=== PATIENT | male | born 1995 ===

== ENCOUNTER 2023-11-05 19:25 | Emergency (ER) | payer MEDICAID, SELFPAY ==
[2023-11-05 19:35] VITALS: BP 109/78; PULSE 87; RESP 20; TEMP 37; O2SAT 97; BMI 27.4
--- NOTE | 2023-11-05 19:39 | ED_ITS ---
HPI - General Adult General Chief complaint: General Medical Stated complaint: vomiting blood yesterday and this morning Time Seen by Provider: 11/05/23 21:59 Source: patient and family Mode of arrival: ambulatory Limitations: no limitations History of Present Illness ED Provider: Dr. Noriega HPI narrative: Patient states that after a night of heavy alcohol use and cocaine he vomited blood one time Onset (ago): day(s) Severity: mild Related Data Previous Rx's ?Medication ?Instructions ?Recorded pantoprazole 40 mg tablet,delayed 40 mg PO DAILY #20 tabs 11/05/23 release (Protonix) Allergies Allergy/AdvReac Type Severity Reaction Status Date / Time No Known Allergies Allergy Verified 11/05/23 19:37 Review of Systems 2 Review of Systems: Yes all other systems are reviewed and are negative Neurologic: Denies Sensory deficit (Neuro) [facility] Social History Social History Alcohol intake: current Use of substances other than those prescribed or required for medical reasons: Yes Substance Use Type: Crack/Cocaine Advance Directives: No Advance Directives Information Provided: Yes Do you have a plan to hurt others: No Plan Physical Exam ED Vital Signs: Vital Signs - 24 hr 11/05/23 19:35 11/05/23 23:31 11/05/23 23:32 Temperature 98.6 F 98.0 F 98.0 F Pulse Rate 87 67 67 Respiratory Rate 20 12 12 Blood Pressure 109/78 119/78 119/78 Pulse Oximetry 97 96 96 Oxygen Delivery Method Room Air Room Air Room Air BMI result Body Mass Index 27.4 Const General: healthy appearing Nutritional Appearance: average body habitus Orientation/consciousness: oriented to person and patient oriented x3 Limitations: no limitations HENMT Head: Yes normal to inspection Ears: external ears normal General nose exam: Normal external nose present Mouth: Normal oral and palatal mucosa present and oropharynx normal Throat: Yes posterior oropharynx normal Eyes General: appearance normal, both eyes and all related structures Neck Neck: Yes normal visual inspection Chest Chest palpation & inspection: normal inspection of the chest Resp Auscultation: clear to auscultation bilaterally Cardio Jugular venous distension: no JVD Rate: regular rate Rhythm: regular rhythm Heart sounds: S1 normal heart sound present and S2 normal heart sound present GI Inspection: Yes normal to inspection Palpation (GI): Soft to palpation, nontender and No hepatosplenomegaly present Auscultation: normal bowel sounds Other: rectal brown stool heme negative General: Yes no CVA tenderness Back/Spine/Pelvis Back: no CVA tenderness Skin General skin exam: no rashes or lesions noted Neuro General: oriented to person and patient oriented x3 Cranial nerves: Yes CN's II-XII intact bilaterally Motor exam (neuro): 5/5 motor strength present throughout Sensory Exam: No Sensory deficit (Neuro) Extrem General: Yes normal to inspection Psych Appearance: grossly normal Course Course Course Narrative: This is a Rapid Medical Examination (RME) performed by Rochelle Beal PA-C in triage. Full HPI, ROS, assessment and treatment plan per primary provider in the Main ED. 28 yo male hx of etoh abuse here for eval of bloody emesis. reports heavy drinking yesterday and snorting cocaine, had one episode of vomiting with dark red chunks in the vomit. admits to lower abdominal pain and loose stools. no hematuria. no melena. Plan: labs, UA, will defer imaging to primary provider Reevaluation(s) Reevaluation #1: At this time patient refusing NGT lavage. He most likely had a Yasmin Sanders tear as he has a normal HCT, brown stool heme negative Time: 23:09 Medical Decision Making Differential Diagnosis Differential Diagnoses: The differential diagnosis associated with the presentation includes (gastritis, yasmin hesham tear, PUD) Admission/Observation Consideration of admission/observation: Escalation of care including admission/observation considered (upon arrival admission was considered) Lab Data 11/05/23 21:01 11/05/23 21:01 Labs: Lab Results 11/05/23 Range/Units 21:01 WBC 6.1 (4.8-10.8) X10*3/uL RBC 4.54 L (4.60-5.80) X10*6/uL Hgb 14.1 (14.0-18.0) g/dl Hct 40.3 L (42.0-52.0) % MCV 88.8 (80.0-98.0) fL MCH 31.1 (27.0-33.0) pg MCHC 35.0 (31.0-36.0) g/dl RDW 12.7 (11.0-16.0) % Plt Count 289 (160-400) X10*3/uL MPV 9.1 L (9.4-12.4) fL Immature Gran % (Auto) 0.5 H (0.0-0.4) % Neut % (Auto) 42.3 L (45-73) % Lymph % (Auto) 39.1 (20-40) % Highland % (Auto) 12.3 H (2-11) % Eos % (Auto) 5.1 H (0-4) % Baso % (Auto) 0.7 (0-2) % Lymph # (Auto) 2.4 (1.2-4.9) X10*3/uL Highland # (Auto) 0.8 (0.1-1.2) X10*3/uL Eos # (Auto) 0.3 (0.0-0.4) X10*3/uL Baso # (Auto) 0.0 (0.0-0.2) X10*3/uL Abs Immat Gran (auto) 0.03 (0.00-0.03) X10*3/uL Absolute Neuts (auto) 2.6 (2.0-8.3) x10*3/uL Absolute Nucleated RBC 0.000 (0.0-0.012) X10*3/uL Nucleated RBC % (auto) 0.0 (0.0-0.2) /100WBC Sodium 143 (135-145) mmol/L Potassium 3.8 (3.3-5.1) mmol/L Chloride 106 (96-108) mmol/L Carbon Dioxide 30 H (22-29) mmol/L Anion Gap 11 L (12-20) BUN 11 (9-16) mg/dL Creatinine 0.90 (0.5-1.4) mg/dL Estim Creat Clear Calc 101.8 Estimated GFR > 60 Random Glucose 116 H (60-115) mg/dL Calcium 9.0 (8.4-10.2) mg/dL Magnesium 2.1 (1.6-2.6) mg/dL Total Bilirubin 0.3 (0.0-1.0) mg/dL AST 14 (5-37) U/L ALT 15 (0-40) U/L Alkaline Phosphatase 80 (39-117) U/L Total Protein 7.0 (6.5-8.0) g/dL Albumin 4.1 (3.5-5.0) g/dL Lipase 26 (8-78) U/L Ethyl Alcohol < 10 mg/dL Independent Historian Clinical information obtained from an independent historian. History obtained from or confirmed by: Spouse Tests considered The following testing was considered but not selected: CT of abdomen was considered but patient with stable vital, normal HCT heme negative on rectal exam Chronic Conditions Patient?s care impacted by: Other (alcohol and drug use) Social Determinants Patient?s care significantly limited by Social Determinants of Health including: Alcoholism and drug addiction in family Discharge Plan Discharge Clinical Impression: Gastritis, Yasmin-Sanders tear Patient Disposition: Home, Self-Care Instructions: Gastritis (ED), Yasmin-Sanders Syndrome (ED) Prescriptions: New pantoprazole [Protonix] 40 mg tablet,delayed release (DR/EC) 40 mg PO DAILY Qty: 20 0RF Referrals: Physician,Unknown J [Primary Care Provider] - 5 days Interventions: ED Discharge Assessment Last Done: 11/05/23 23:32 Discharge Date/Time: 11/05/23 23:35 Print Language: Latvian
[2023-11-05 21:05] LABS: MANUAL DIFF FLAG NO
[2023-11-05 21:23] LABS: Alanine Aminotransferase 15 U/L (0-40); Albumin Level 4.1 g/dL (3.5-5.0); Alkaline Phosphatase 80 U/L (39-117); Anion Gap 11 (12-20); Aspartate Amino Transferase 14 U/L (5-37); Bilirubin Total 0.3 mg/dL (0.0-1.0); Blood Urea Nitrogen 11 mg/dL (9-16); Carbon Dioxide 30 mmol/L (22-29); Chloride 106 mmol/L (96-108); Creatinine Clr Calc Pharmacy 101.8; Estimated Glomerular Filt Rate > 60; Ethanol < 10 mg/dL; Glucose Random 116 mg/dL (60-115); Lipase 26 U/L (8-78); Magnesium 2.1 mg/dL (1.6-2.6); Potassium 3.8 mmol/L (3.3-5.1); Sodium 143 mmol/L (135-145)
[2023-11-05 21:29] LABS: Basophils Percent Auto 0.7 % (0-2); Eosinophils Absolute Auto 0.3 X10*3/uL (0.0-0.4); Eosinophils Percent Auto 5.1 % (0-4); Hematocrit 40.3 % (42.0-52.0); Hemoglobin 14.1 g/dl (14.0-18.0); Imm Gran Abs Auto 0.03 X10*3/uL (0.00-0.03); Imm Gran Pct Auto 0.5 % (0.0-0.4); Lymphocytes Absolute Auto 2.4 X10*3/uL (1.2-4.9); Lymphocytes Percent Auto 39.1 % (20-40); Mean Corpuscular Hemoglobin 31.1 pg (27.0-33.0); Mean Corpuscular Volume 88.8 fL (80.0-98.0); Mean Platelet Volume 9.1 fL (9.4-12.4); Monocytes Absolute Auto 0.8 X10*3/uL (0.1-1.2); Monocytes Percent Auto 12.3 % (2-11); Neutrophils Absolute Auto 2.6 x10*3/uL (2.0-8.3); Neutrophils Percent Auto 42.3 % (45-73); Platelet Count 289 X10*3/uL (160-400); Red Blood Count 4.54 X10*6/uL (4.60-5.80); Red Cell Distribution Width 12.7 % (11.0-16.0); White Blood Count 6.1 X10*3/uL (4.8-10.8)
--- OUTSIDE RECORDS SUMMARY | 2023-11-05 23:20 | XMS_ITS | Continuity of Care Document ---
Author Organization [facility] ter Address [address] [place] [address]- Care Team Providers Care Diagnostic Radiologic Technologist Name Role Phone Not on Staff, PCP Primary Care Physician Unavail able [place] [facility] [place] - 09/28/[address] [address]- Encounter Diagnosis Cocaine abuse(Final) - 09/28/21 Discharge Disposition: A-D/C Home Attending Physician: Matteo Ratliff DO Admitting Physician: Matteo Ratliff DO Referring Physician: Not on Staff, Referring MD Allergies, Adverse Reactions, Alerts No Known Allergies Medications ibuprofen 400 mg oral tablet 400 mg, 1, tablet, By Mouth, 3 times a day, PRN, with food or milk, # 10 tablet, Refills 0, Tot. Refills 0, Maintenance, for fever, 09/24/19 16:48:00 EDT, Route to Pharmacy Electronically, [id number], 158, cm, 09/24/19 15:42:00 EDT, Height, 68... Start Date: 09/24/19 Status: Ordered naproxen sodium 550 mg oral tablet 1 tablet = 550 mg, By Mouth, 2 times a day, PRN for arthritis, # 20 tablet, 0 Refills, Maintenance,04/18/19 13:01:00 EST, Tablet, [id number], 158, cm, 04/18/19 12:33:00 EST, Height, 66.4, kg, 04/18/19 12:33:00 EST, Dry Weight Start Date: 04/18/19 Status: Ordered Problem List Condition Effective Dates Status Health Status Inform ant Hallucinations(Confirmed) Active Suicidal behavior(Confirmed) Active Results Radiology Reports * Exam Date Time Procedure Performing Provider Status 09/28/21 10:26 AM Chest Portable Rica Wallis; Issa (Verified) Notes: (Chest Portable) Reason For Exam: CHF RESULT: Chest Portable Chest Portable Hx of Present Illness: AMS; Reason: CHF; Clinical Question(s): CHF COMPARISON: 08/19/2021. FINDINGS: LINES AND TUBES: None. LUNGS AND PLEURA: Clear lungs. Normal pulmonary vascularity. No pleural effusion. No pneumothorax. HEART, MEDIASTINUM AND TERRY: Heart is normal in size. Normal upper mediastinal and hilar contour. BONES AND SOFT TISSUES: No acute abnormality. IMPRESSION: No acute abnormality. WSN: [id number] Ordering Physician: Matteo Ratliff Dictated By: Robert Salas MD Dictated Date/Time: 09/28/21 10:30 a Reviewed By: Robert Salas MD Signed By: Robert Salas MD Signed Date/Time: 09/28/21 10:30 am Transcribed By: FELIBERTO Transcribed Date/Time: 09/28/21 10:29 am Vital Signs Most recent to oldest [Reference Range]: 1 2 3 Oxygen Saturation [94-100 %] 100 % (09/28/21 12:36 PM) 100 % (09/28/21 11:25 AM) 100 % (09/28/21 10:49 AM) Pulse Rate [55-90 bpm] 65 bpm (09/28/21 12:36 PM) 95 bpm *H* (09/28/21 11:25 AM) 90 bpm (09/28/21 10:49 AM) Blood Pressure [90-138/55-84 mm Hg] 136/88mm Hg (09/28/21 12:36 PM) 134/86mm Hg (09/28/21 11:25 AM) 139/82mm Hg *H* (09/28/21 10:49 AM) Respiratory Rate [16-30 br/min] 18 br/min (09/28/21 12:36 PM) 18 br/min (09/28/21 11:25 AM) 19 br/min (09/28/21 10:49 AM) Temperature [96.8-100.4 DegF] 98.8 DegF (09/28/21 10:49 AM) 98.6 DegF (09/28/21 9:45 AM) 98.6 DegF (09/28/21 9:07 AM) Mode of Delivery (Oxygen) Room air (09/28/21 12:36 PM) Room air (09/28/21 11:25 AM) Room air (09/28/21 10:49 AM) Blood pressure sites Arm, left (09/28/21 12:36 PM) Arm, left (09/28/21 11:25 AM) Arm, left (09/28/21 10:49 AM) Temperature Route Oral (09/28/21 9:45 AM) Oral (09/28/21 9:07 AM) Social History Social History Type Response Smoking Status Current every day glen gordon entered on: 06/28/14 Sex
--- OUTSIDE RECORDS SUMMARY | 2023-11-05 23:20 | XMS_ITS | Continuity of Care Document ---
Author Organization [facility] ter Address [address] [place] [id number]- Care Team Providers Care Transaction Coordinator Name Role Phone Matteo hCurch Primary Care Physician [phone] Encounter [facility] [place] Date(s): 06/24/23 - 06/24/[address] [address]- Encounter Diagnosis Depression(Final) - 06/24/23 Discharge Disposition: A-D/C Home Attending Physician: Leopoldo Emmanuel MD Admitting Physician: Leopoldo Emmanuel MD Referring Physician: Not on Staff, Referring MD Allergies, Adverse Reactions, Alerts No Known Medication Allergies Substance Reaction Severity Status Bee Stings Active Immunizations Given and Recorded Vaccine Date Status Refusal Reason Hepatitis A Adult Vaccine 05/17/21 Recorded Hepatitis A Adult Vaccine 04/22/16 Recorded tetanus/diphtheria/pertussis, acel(Tdap) 05/17/21 Recorded SARS-CoV-2 (COVID-19) mRNA-1273 vaccine 11/30/20 R ecorded SARS-CoV-2 (COVID-19) mRNA-1273 vaccine 06/25/20 R ecorded influenza virus vaccine, inactivated 04/15/19 Mio rded pneumococcal 23-valent vaccine 04/22/16 Recorded Measles/Mumps/Rubella Virus Vaccine 04/22/16 Recor ded hepatitis B adult vaccine 04/22/16 Recorded Medications clotrimazole 1% topical cream See Instructions, Topically 2 times a day, # 30 Gm, 0 Refills, Maintenance, 10/13/21 11:28:00 EDT, Cream, [id number], Partial fill upon patient request if the prescription is for a schedule II opioid drug., Topically 2 times a day, 15... Start Date: 10/13/21 Status: Ordered escitalopram 10 mg oral tablet 1 tablet = 10 mg, By Mouth, Daily, # 30 tablet, 0 Refills, Maintenance, 10/13/21 11:30:00 EDT, Tablet, [id number], Partial fill upon patient request if the prescription is for a schedule II opioid drug., 157, cm, 10/13/21 10:46:00 EDT... Start Date: 10/13/21 Status: Ordered nicotine 14 mg/24 hr transdermal film, extended release 1 patch, Topically, Daily, # 30 patch, 0 Refills, Maintenance, 10/13/21 11:30:00 EDT, Patch, [facility] #[id number], Partial fill upon patient request if the prescription is for a schedule II opioid drug., 1 patch Topically Daily, 157, cm, ... Start Date: 10/13/21 Status: Ordered Nicotine 2 mg gum = 2 mg, Chew, Every hour, PRN Other, Nicotine Cravings, # 160 each, 0 Refills, Maintenance, 10/13/21 11:30:00 EDT, Gum, [facility] #[id number], Partial fill upon patient request if the prescription is for a schedule II opioid drug., 157, cm, 09/20... Start Date: 10/13/21 Status: Ordered traZODone 50 mg oral tablet 50 mg, 1, tablet, By Mouth, Daily at bedtime, PRN, May repeat x1 if first dose ineffective, # 30 tablet, Refills 0, Tot. Refills 0, Maintenance, Insomnia, 10/13/21 11:30:00 EDT, Route to Pharmacy Electronically, [facility] #[id number], Partial fi... Start Date: 10/13/21 Status: Ordered Problem List Condition Confirmation Course Effective Dates Status Health St atus Informant Hallucinations Confirmed Active Suicidal behavior Confirmed Active Results Radiology Reports * Exam Date Time Procedure Performing Provider Status 06/24/23 8:16 AM Chest Portable Kayden Ludwig; Auth ( Verified) Notes: (Chest Portable) Reason For Exam: Shortness of Breath RESULT: Chest Portable Chest Portable Hx of Present Illness: SI, with ETOH and cocaine use; Reason: Shortness of Breath; Clinical Question(s): CHF COMPARISON: None. FINDINGS: LINES AND TUBES: None. LUNGS AND PLEURA: Clear lungs. Normal pulmonary vascularity. No pleural effusion. No pneumothorax. HEART, MEDIASTINUM AND TERRY: Heart is normal in size. Normal mediastinal and hilar contour. BONES AND SOFT TISSUES: No acute abnormality. IMPRESSION: No acute abnormality. WSN: [id number] Ordering Physician: Flores Robles Dictated By: Juan Pablo Carlin MD Dictated Date/Time: 06/24/23 8:21 am Reviewed By: Juan Pablo Carlin MD Signed By: Juan Pablo Carlin MD Signed Date/Time: 06/24/23 8:21 am Transcribed By: FELIBERTO Transcribed Date/Time: 06/24/23 8:21 am Vital Signs Most recent to oldest [Reference Range]: 1 2 3 Height 157 cm (06/24/23 8:00 AM) Weight 63.6 kg (06/24/23 8:00 AM) Oxygen Saturation [94-100 %] 99 % (06/24/23 1:24 PM) 98 % (06/24/23 10:04 AM) 99 % (06/24/23 9:09 AM) Pulse Rate [55-90 bpm] 76 bpm (06/24/23 1:24 PM) 72 bpm (06/24/23 10:04 AM) 74 bpm (06/24/23 9:09 AM) Blood Pressure [90-138/55-84 mm Hg] 138/78mm Hg (06/24/23 1:24 PM) 134/82mm Hg (06/24/23 10:04 AM) 107/78mm Hg (06/24/23 9:09 AM) Respiratory Rate [16-30 br/min] 16 br/min (06/24/23 1:24 PM) 18 br/min (06/24/23 10:04 AM) 16 br/min (06/24/23 9:09 AM) Temperature [96.8-100.4 DegF] 98.1 DegF (06/24/23 8:00 AM) Mode of Delivery (Oxygen) Room air (06/24/23 1:24 PM) Room air (06/24/23 10:04 AM) Room air (06/24/23 9:09 AM) Blood pressure sites Arm, left (06/24/23 10:04 AM) Arm, left (06/24/23 9:09 AM) Arm, left (06/24/23 8:00 AM) Temperature Route Oral (06/24/23 8:00 AM) Dry Weight 63.6 kg (06/24/23 8:00 AM) Weight Obtained Via Patient/family state d (06/24/23 8:00 AM) Dry Weight Obtained Via Patient/family s tated (06/24/23 8:00 AM) Social History Social History Type Response Smoking Status Use: 1 PPD; Interest ed in cessation: Yes; Patient wants NRT during admission Yes;Never entered on: 10/11/21 Sex EKG study * Event Display: ECG 12-Lead Authored Date: Please click on pdf link to open report * Event Display: ECG 12-Lead Authored Date: Ventricular Rate: 80 BPM Atrial Rate: 80 BPM P-R Interval: 160 ms QRS Duration: 94 ms Q-T Interval: 376 ms QTC Calculation(Bazett): 433 ms R Bryan: 121 degrees T Bryan: 114 degrees Normal sinus rhythm Right axis deviation Nonspecific T wave abnormality Abnormal ECG When compared with ECG of 19-FEB-2023 16:23, Nonspecific T wave abnormality now evident in Lateral leads Confirmed by SERA FLORES MD ([id number]) on 06/24/2023 8:18:15 PM [place]: SERA FLORES MD Patient Care team information Care Team Personnel Name: Matteo Church Position: [facility] Outreach Member Role: PCP Address: Address: [address] [place] [id number] Name: Rochelle Anderson RN Position: [facility] RN Member Role: Primary Care Nurse Name: Dee Brown RN Position: [facility] RN Member Role: Primary Care Nurse Name: Sherie Díaz RN Position: [facility] RN Member Role: Primary Care Nurse Name: Brent Wayne MD Position: [facility] Physician - Behavioral Health Member Role: Lifetime Consulting Physician Address: Address: [address] [place] [id number] Care Team Related Persons Name: RENEE ARCOS Address: home [address] [place] [address] Name: RENEE ARCOS Address: home [address] [place] [address] Name: ERNESTOKHALIDA Address: home [address] [place] [address] Name: COLBY LOPEZ Name: KAPIL BALLARD Address: home [address] [place] [address] Name: LORI DE JESUS Address: home [address] [place] [address]
--- OUTSIDE RECORDS SUMMARY | 2023-11-05 23:20 | XMS_ITS | Continuity of Care Document ---
Author Organization [facility] ter Address [address] [place] [id number]- Care Team Providers Care Breaker Up Name Role Phone Sumit LOPEZ, Trinidad Grace Primary Care Physician [place] [facility] [place] 04/29/22 - 04/29/[address] [address]- Encounter Diagnosis Cocaine use disorder(Final) - 04/29/22 Altered mental state(Final) - 04/29/22 Fall(Final) - 04/29/22 Discharge Disposition: A-D/C Home Attending Physician: Chapito Peña MD Admitting Physician: Chapito Peña MD Referring Physician: Not on Staff, Referring [...] 0 Refills, Maintenance, 10/13/21 11:28:00 EDT, Cream, [facility] #[id number], Partial fill upon patient request if the prescription is for a schedule II opioid drug., Topically 2 times a day, 15... Start Date: 10/13/21 Status: Ordered escitalopram 10 mg oral tablet 1 tablet = 10 mg, By Mouth, Daily, # 30 tablet, 0 Refills, Maintenance, 10/13/21 11:30:00 EDT, Tablet, [facility][id number], Partial fill upon patient request if the prescription is for a schedule II opioid drug., 157, cm, 10/13/21 10:46:00 EDT... Start Date: 10/13/21 Status: Ordered nicotine 14 mg/24 hr transdermal film, extended release 1 patch, Topically, Daily, # 30 patch, 0 Refills, Maintenance, 10/13/21 11:30:00 EDT, Patch, [facility] #[id number], Partial fill upon patient request if the prescription is for a schedule II opioid drug., 1 patch Topically Daily, 157, cm, ... Start Date: 10/13/21 Status: Ordered Nicotine 2 mg gum = 2 mg, Chew, Every hour, PRN Other, Nicotine Cravings, # 160 each, 0 Refills, Maintenance, 10/13/21 11:30:00 EDT, Gum, [facility] #[id number], Partial fill upon patient request if the prescription is for a schedule II opioid drug., 157, cm, 09/20... Start Date: 10/13/21 Status: Ordered traZODone 50 mg oral tablet 50 mg, 1, tablet, By Mouth, Daily at bedtime, PRN, May repeat x1 if first dose ineffective, # 30 tablet, Refills 0, Tot. Refills 0, Maintenance, Insomnia, 10/13/21 11:30:00 EDT, Route to Pharmacy Electronically, [facility] #[id number], Partial fi... Start Date: 10/13/21 Status: Ordered Problem List Condition Confirmation Course Effective Dates Status [facility] atus Informant Hallucinations Confirmed Active Suicidal behavior Confirmed Active Results Radiology Reports * Exam Date Time Procedure Performing Provider Status 04/29/22 4:[address] Head/Brain W/O Contrast Avery Valdez Z; Auth (Verified) Notes: (CT Head/Brain W/O Contrast) Reason For Exam: Seizure Disorder RESULT: CT Head/Brain W/O Contrast CT Head/Brain W/O Contrast INDICATION: Hx of Present Illness: Seizure like activity; Reason: Seizure Disorder; Clinical Question(s): Hematoma; Order Comment: TECHNIQUE: Noncontrast head CT using axial technique and reconstructed in axial and coronal planes.Iterative reconstruction techniques are used to optimize dose and image quality. CTDIvol Head: 48.00 mGy, DLP Head: 772 mGy*cm. COMPARISON: None. FINDINGS: Freight Conductor view findings, lines and tubes: None. BRAIN AND EXTRA-AXIAL SPACES: No parenchymal hemorrhage, midline shift, or mass effect. Bolton-white matter differentiation is wellpreserved. No acute infarct. Ventricles, sulci, and basilar cisterns are normal. There are low-lying cerebellar tonsils. No white matter lesions. No subarachnoid hemorrhage. No subdural or epidural collection. CALVARIUM, SKULL BASE, AND SOFT TISSUES: No fractures or suspicious bony lesions. The paranasal sinuses and mastoid air cells are clear. The anterior portion of the nasal septum is absent. Visualized orbits and globes are intact. The extracranial soft tissues are unremarkable. IMPRESSION: No acute intracranial pathology. Low-lying cerebellar tonsils. WSN: [id number] Ordering Physician: Simona Bettencourt Dictated By: Rambo Bartholomew MD Dictated Date/Time: 04/29/22 4:40 pm Reviewed By: Rambo Bartholomew MD Signed By: Rambo Bartholomew MD Signed Date/Time: 04/29/22 4:40 pm Transcribed By: FELIBERTO Transcribed Date/Time: 04/29/22 4:36 pm Vital Signs Most recent to oldest [Reference Range]: 1 2 3 Oxygen Saturation [94-100 %] 98 % (04/29/22 8:09 PM) 99 % (04/29/22 6:54 PM) 98 % (04/29/22 3:32 PM) Pulse Rate [55-90 bpm] 102 bpm *H* (04/29/22 8:09 PM) 92 bpm *H* (04/29/22 6:54 PM) 105 bpm *H* (04/29/22 3:32 PM) Blood Pressure [90-138/55-84 mm Hg] 126/81mm Hg (04/29/22 8:09 PM) 146/78mm Hg *H* (04/29/22 6:54 PM) 151/87mm Hg *H* (04/29/22 3:32 PM) Respiratory Rate [16-30 br/min] 22 br/min (04/29/22 8:09 PM) 18 br/min (04/29/22 6:54 PM) 18 br/min (04/29/22 3:32 PM) Temperature [96.8-100.4 DegF] 99.0 DegF (04/29/22 3:32 PM) Mode of Delivery (Oxygen) Room air (04/29/22 8:09 PM) room air (04/29/22 6:54 PM) Room air (04/29/22 3:32 PM) Blood pressure sites Arm, right (04/29/22 6:54 PM) Arm, left (04/29/22 3:32 PM) Temperature Route Oral (04/29/22 3:32 PM) Social History Social History Type Response Smoking Status Use: 1 PPD; Interest ed in cessation: Yes; Patient wants NRT during admission Yes;Never entered on: 10/11/21 Sex Note * Simona Bettencourt MD: PERFORM, SIGN, VERIFY Event Display: Patient Education Handout Authored Date: [id number] * Simona Bettencourt MD: PERFORM Event Display: Patient Education Leaflets Authored Date: [id number] Altered Level of Consciousness (LOC) ?? [id number] Nivel de conciencia alterado El nivel de consciencia (LOC, por sepulveda sigla en ingl??s) es la medida de la capacidad de renaldo persona para interactuar con otras y reaccionar a lo que ocurre a sepulveda alrededor. Es posible que renaldo persona con un nivel de conciencia alterado no responda al tacto o a las voces. Puede parecer ausente o con la mente en crowley. Es posible que tenga dificultades para hacer contacto visual. Es posible que est?? d??natalie y no pueda moverse por per??odos largos. O que muestre poco inter??s en moverse. Tambi??n puede estar confundido. La alteraci??n del nivel de consciencia (LOC) puede tener muchas causas. Por ejemplo, bajo nivel deaz??car en la brenda, infecciones, medicamentos, lesiones en la angelo, convulsiones, ataque cerebral o embriaguez. La alteraci??n del nivel de consciencia es renaldo situaci??n de emergencia. El proveedor de atenci??n m??dica le pedir?? otras pruebas para ayudar a determinar la causa. Estas pueden incluir an??lisis de brenda y estudios con im??genes. El tratamiento estabiliza la respiraci??n y la frecuencia card??laura. Le administrar??n medicamentos a ramu??s de renadlo sonda intravenosa colocada en el brazo o la mano. Renaldo vez que se haya determinado la causa, le mago??n un tratamiento espec??fico. En la mayor??a de los casos, la persona ser?? hospitalizada para que le realicen las pruebas de diagn??stico y permanezca en observaci??n. Algunas afecciones poco frecuentes, gabby el s??ndrome de enclaustramiento y el mutismo acin??keiry, pueden confundirse con un coma.??Philippe la persona est?? completamente despierta. Cuidados en el hogar Cuando a sepulveda ser querido le den el eren del hospital, le mago??n pautas para cuidarlo. En general: ??? Siga las instrucciones del proveedor para administrarle a sepulveda hijo cualquier medicamento que le hayan recetado. ??? Permanezca con la persona afectada o pida a un adulto responsable que la cuide. Observe a la persona con cuidado para detectar la reaparici??n de s??ntomas o cambios en el comportamiento. ??? Si la persona tiene diabetes, aseg??rese de darle los medicamentos aprobados de forma puntual y siguiendo las indicaciones. ?? Visita de seguimiento Stephon el seguimiento con el proveedor de atenci??n m??dica o con nuestro personal jey gabby se lo indiquen. ?? Cu??ndo buscar atenci??n m??dica Llame de inmediato a sepulveda proveedor de atenci??n m??dica si aparecen s??ntomas nuevos. ?? Cu??ndo llamar al?? 911 Llame al?? 911 o busque atenci??n m??dica de inmediato si reaparecen los s??ntomas de alteraci??n del nivel de consciencia. ?? Last Reviewed Date: 2021 ?? [id number] [employer]. Todos los derechos reservados. Esta informaci??n no pretende sustituir la atenci??n m??dica profesional. S??lo sepulveda m??dico puede diagnosticar y tratar un problema de rob. ?? CT Head WO contrast * BHSPowerscribe , CIS S: TRANSCRIBE [place] [facility], Rambo H: VERIFY Event Display: Result: Authored Date: [id number] CT Head/Brain W/O Contrast INDICATION: Hx of Present Illness: Seizure like activity; Reason: Seizure Disorder; Clinical Question(s): Hematoma; Order Comment: TECHNIQUE: Noncontrast head CT using axial technique and reconstructed in axial and coronal planes.Iterative reconstruction techniques are used to optimize dose and image quality. CTDIvol Head: 48.00 mGy, DLP Head: 772 mGy*cm. COMPARISON: None. FINDINGS: Freight Conductor view findings, lines and tubes: None. BRAIN AND EXTRA-AXIAL SPACES: No parenchymal hemorrhage, midline shift, or mass effect. Bolton-white matter differentiation is wellpreserved. No acute infarct. Ventricles, sulci, and basilar cisterns are normal. There are low-lying cerebellar tonsils. No white matter lesions. No subarachnoid hemorrhage. No subdural or epidural collection. CALVARIUM, SKULL BASE, AND SOFT TISSUES: No fractures or suspicious bony lesions. The paranasal sinuses and mastoid air cells are clear. The anterior portion of the nasal septum is absent. Visualized orbits and globes are intact. The extracranial soft tissues are unremarkable. IMPRESSION: No acute intracranial pathology. Low-lying cerebellar tonsils. WSN: [id number] Ordering Physician: Simona Bettencourt Dictated By: Rambo Bartholomew MD Dictated Date/Time: 04/29/22 4:40 pm Reviewed By: Rambo Bartholomew MD Signed By: Rambo Bartholomew MD Signed Date/Time: 04/29/22 4:40 pm Transcribed By: FELIBERTO Transcribed Date/Time: 04/29/22 4:36 pm Patient Care team information Care Team Personnel Name: Trinidad Arana NP Position: [facility] Outreach Member Role: PCP Address: Address: [address] [place], [place] [address] Name: Rochelle Anderson RN Position: [facility] RN Member Role: Primary Care Nurse Name: Dee Brown RN Position: [facility] RN Member Role: Primary Care Nurse Name: Sherie Díaz RN Position: [facility] RN Member Role: Primary Care Nurse Name: Brent Wayne MD Position: [facility] Psychiatry MD Member Role: Lifetime Consulting Physician Address: Address: [address] [place] [id number] Name: Simona Bettencourt MD Position: [facility] Resident Member Role: ED Resident Address: Address: [address] [place] [address]- Name: Sol Allison Position: [facility] ED TA [facility] Member Role: Manager Interface Name: Chapito Peña MD Position: [facility] Resident Member Role: Admitting Physician Address: Address: [address] [place] [id number] Name: Beckie Kirby RN Position: [facility] ED RN W/OE and Tasks Member Role: Patient Care Provider Care Team Related Persons Name: JOSSELYN RENEE Address: [address] [address] Name: RENEE ARCOS Address: home [address] [place] [address] Name: KAPIL BALLARD Address: home [address] [place] [address] Name: LORI DE JESUS Address: home [address] [place] [address]
--- OUTSIDE RECORDS SUMMARY | 2023-11-05 23:20 | XMS_ITS | Continuity of Care Document ---
Author Organization [facility] ter Address [address] [place] [address]- Care Team Providers Care Warehouse Director Name Role Phone Not on Staff, PCP Primary Care Physician Unavail able [place] [facility] [place] 08/06/[address] [address]- Discharge Disposition: A-D/C Walkout Attending Physician: Dave Bradley MD Admitting Physician: Dave Bradley MD Referring Physician: Not on Staff, Referring MD Allergies, Adverse Reactions, Alerts No Known Medication Allergies Substance Reaction Severity Status NKA Active Medications ibuprofen 400 mg oral tablet 400 mg, 1, tablet, By Mouth, 3 times a day, PRN, with food or milk, # 10 tablet, Refills 0, Tot. Refills 0, Maintenance, for fever, 09/24/19 16:48:00 EDT, Route to Pharmacy Electronically, [facility]acy #[id number], 158, cm, 09/24/19 15:42:00 EDT, Height, [...] Inform ant Hallucinations(Confirmed) Active Suicidal behavior(Confirmed) Active Vital Signs Most recent to oldest [Reference Range]: 1 2 Height 158 cm (08/06/20 8:40 AM) Weight 71.5 kg (08/06/20 8:40 AM) Oxygen Saturation [94-100 %] 100 % (08/06/20 8:40 AM) 99 % (08/06/20 8:20 AM) Pulse Rate [55-90 bpm] 107 bpm *H* (08/06/20 8:40 AM) 113 bpm *H* (08/06/20 8:20 AM) Body Mass Index [18.5-24.99] 28.64 *H* (08/06/20 8:40 AM) Blood Pressure [90-138/55-84 mm Hg] 149/ 83mm Hg *H* (08/06/20 8:40 AM) Respiratory Rate [16-30 br/min] 26 br/mi n (08/06/20 8:40 AM) Temperature [96.8-100.4 DegF] 98.4 DegF (08/06/20 8:40 AM) Mode of Delivery (Oxygen) Room air (08/06/20 8:40 AM) Room air (08/06/20 8:20 AM) Blood pressure sites Arm, left (08/06/20 8:40 AM) Temperature Route Oral (08/06/20 8:40 AM) Weight Obtained Via Standing scale (08/06/20 8:40 AM) Social History Social History Type Response Smoking Status Current every day glen gordon entered on: 06/28/14 Sex
--- OUTSIDE RECORDS SUMMARY | 2023-11-05 23:20 | XMS_ITS | Continuity of Care Document ---
Author Organization [facility] ter Address [address] [place] [address]- Care Team Providers Care Encyclopedia Research Worker Name Role Phone Not on Staff, PCP Primary Care Physician Unavail able Encounter [facility] [place] Date(s): 08/19/21 - 08/19/[address] [address]- Encounter Diagnosis Chest pain(Final) - 08/19/21 Cocaine abuse(Final) - 08/19/21 Alcohol abuse(Final) - 08/19/21 Discharge Disposition: A-D/C Home Attending Physician: Francy Hall MD Admitting Physician: Francy Hall MD Referring Physician: Not on Staff, Referring MD Allergies, Adverse Reactions, Alerts No Known Allergies Medications ibuprofen 400 mg oral tablet 400 mg, 1, tablet, By Mouth, 3 times a day, PRN, with food or milk, # 10 tablet, Refills 0, Tot. Refills 0, Maintenance, for fever, 09/24/19 16:48:00 EDT, Route to Pharmacy Electronically, [facility] #[id number], 158, cm, 09/24/19 15:42:00 EDT, Height, 68... Start Date: 09/24/19 Status: Ordered naproxen sodium 550 mg oral tablet 1 tablet = 550 mg, By Mouth, 2 times a day, PRN for arthritis, # 20 tablet, 0 Refills, Maintenance,04/18/19 13:01:00 EST, Tablet, [facility]acy #1111, 158, cm, 04/18/19 12:33:00 EST, Height, 66.4, kg, 04/18/19 12:33:00 EST, Dry Weight Start Date: 04/18/19 Status: Ordered Toradol Inj 15 mg, Injection, IV Push Slowly, Once, STAT, 08/19/21 11:45:00 EDT, Stop date 08/19/21 11:45:00 EDT Start Date: 08/19/21 Stop Date: 08/19/21 Status: Completed Problem List Condition Effective Dates Status Health Status Inform ant Hallucinations(Confirmed) Active Suicidal behavior(Confirmed) Active Results Radiology Reports * Exam Date Time Procedure Performing Provider Status 08/19/21 11:31 AM Chest Portable Adal , Carmen; Auth (V erified) Notes: (Chest Portable) Reason For Exam: Shortness of Breath RESULT: Chest Portable Chest Portable Hx of Present Illness: CP and SOB after etoh and cocaine use, s s x 2 hours CONTROL CHEMIST; Reason: Shortness of Breath; Clinical Question(s): CHF COMPARISON: August 02, 2021 FINDINGS: LINES AND TUBES: None. LUNGS AND PLEURA: Clear lungs. Normal pulmonary vascularity. No pleural effusion. No pneumothorax. HEART, MEDIASTINUM AND TERRY: Heart is normal in size. Normal upper mediastinal and hilar contour. BONES AND SOFT TISSUES: No acute abnormality. IMPRESSION: No acute abnormality. WSN: [id number] Ordering Physician: Shelbei Bazzi Dictated By: Dave Bridges MD Dictated Date/Time: 08/19/21 11:34 a Reviewed By: Dave Bridges MD Signed By: Dave Bridges MD Signed Date/Time: 08/19/21 11:34 am Transcribed By: FELIBERTO Transcribed Date/Time: 08/19/21 11:33 am Vital Signs Most recent to oldest [Reference Range]: 1 2 3 Height 158 cm (08/19/21 12:02 PM) Oxygen Saturation [94-100 %] 98 % (08/19/21 5:10 PM) 98 % (08/19/21 2:06 PM) 99 % (08/19/21 12:02 PM) Pulse Rate [55-90 bpm] 81 bpm (08/19/21 5:10 PM) 67 bpm (08/19/21 2:06 PM) 84 bpm (08/19/21 12:02 PM) Blood Pressure [90-138/55-84 mm Hg] 147/81mm Hg *H* (08/19/21 5:10 PM) 142/90mm Hg *H* (08/19/21 2:06 PM) 148/90mm Hg *H* (08/19/21 12:02 PM) Respiratory Rate [16-30 br/min] 16 br/min (08/19/21 5:10 PM) 16 br/min (08/19/21 2:06 PM) 18 br/min (08/19/21 12:28 PM) Temperature [96.8-100.4 DegF] 98.8 DegF (08/19/21 11:04 AM) Liters per Minute 2 L/min (08/19/21 11:02 AM) Mode of Delivery (Oxygen) Room air (08/19/21 5:10 PM) Room air (08/19/21 2:06 PM) Room air (08/19/21 12:02 PM) Blood pressure sites Arm, right (08/19/21 5:10 PM) Arm, right (08/19/21 2:06 PM) Arm, right (08/19/21 11:04 AM) Temperature Route Oral (08/19/21 11:04 AM) Social History Social History Type Response Smoking Status Current every day glen gordon entered on: 06/28/14 Sex
--- OUTSIDE RECORDS SUMMARY | 2023-11-05 23:20 | XMS_ITS | Continuity of Care Document ---
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 unspecified, r/o cocaine-induced, r/o cannabis-induced Cocaine use, rule out cocaine use disorder Alcohol use disorder, by history Tobacco use disorder, by history Suicidal ideation (resolved) Agitation (resolved) ?? Safety/Risk Assessment?? Risk Factors:??History of prior suicide attempts, Impulsive behavior, Substance abuse Protective Factors:??Identifies reasons for living, Future-oriented, Supportive family and cohabitant family, Willing to engage with treatment Assessment??Today:?? On the patient's presentation today, collateral information,??knowledge of??this patient's history,??risk and protective??factors it is my assessment that??they??are NOT an imminent/acute risk of harm to self or others today and hence do not meet criteria??for emergency restraint??and/or??hospitalization under M.G.L.?? 123, Section 12 AT THIS TIME. However, this patient is at a chronic moderate-high??risk??of self- harm given their significant risk factors and requires??appropriate, consistent mental health care to help mitigate future risks of self-ham and/or harm to oth ers.??Psychiatric research repeatedly??demonstrates that??safety/risk assessments??and/or rating scales??have low??predictive values and low??specificity. The aim of this??assessment is to??attempt to mitigate and identify??any imminent risk of??harm to the patient and/or others by utilizing??pertinent information available??to at the time??of this assessment.? Plan:??Patient is aware to call 911, the crisis hotline or to head to the nearest ED if any safety concerns arise. Patient was advised to keep medications, sharp objects or any weapons out of reach and safely locked. ?? Recommendations: -Disposition as per Crisis Services, initially??deemed appropriate for inpatient psychiatric hospitalization??with??subsequent??clinical developments??prompting??change of disposition to outpatient services ([facility] handout provided to patient). -No SI/HI/AVH, nor??acute safety concerns secondary??to primary psychiatric illness necessitating IPLOC. -Restart escitalopram 10 mg PO QD for mood stabilization. Limited supply ordered by [facility] to [facility]. Further optimization as indicated for mood??stabilization and anxiolysis??deferred??to outpatient prescriber. -Restart nicotine 14 mg transdermal QD and 2 mg gum Q1H PRN nicotine cravings. Limited supply ordered by [facility] to [facility]. -(ED only) Start hydroxyzine 50 mg PO Q6H PRN anxiety -(ED only) Start trazodone 50 mg PO daily at bedtime PRN insomnia -(ED only) Start haloperidol 5 mg, lorazepam 2 mg, and diphenhydramine 50 mg PO/IM Q6H PRN agitation/psychosis, reserving IM for severe agitation with acute safety concern and refusal of PO. -Would note that these medications are only being utilized in the ER while the patient awaits placement. Long-term need for these medications will need to be assessed by the patient's future treatingpsychiatrist. -Seclusion or restraint may only be used as interventions of last resort in the management of severe agitation in patient. If they are used, seclusion and restraint episodes should be as short as possible, dignified, and as safe as possible for all involved. Patient preference should always be considered when feasible. ?? We counseled the patient in detail about the importance of sobriety and the interplay between usage of recreational and illicit substances and psychiatric symptoms. We explained to the patient that recreational and illicit substances would interfere with the efficacy of psychiatric medications and would keep the psychiatric medications from being able to show optimal therapeutic effect. We spoke at length about how recreational and illicit substances are known to worsen psychiatric symptoms and are known to put patients at chronic risk for recurrent psychiatric decompensation. Patient was also made aware of the fact that recreational and illicit substances are known to lead to impulsivity and disinhibited behavior because of which patient may become more likely to act on negative thoughts including thoughts of suicidality/homicidality. Patient was strongly advised to stay away from any recreational and illicit substances in the future, as any usage of recreational and illicit substances upon discharge would put the patient at chronic risk for recurrent psychiatric decompensation l eading to chronic risk for impulsive behavior including but not limited to risk for suicide/self-harm/harm to others. Patient expressed a good understanding of this and showed motivation to stay awayfrom recreational and illicit substances upon discharge and to work on addiction during individual psychotherapy sessions in the outpatient setting. ?? Please feel free to contact the Psychiatry consult service (page [id number]) with any questions or concerns.? Recommendations messaged via??[employer] to Dr. Evelyn Agustin and KYLE Kern ?? Dewey Kaufman PA-C (he/him) Emergency Psychiatry Services Division of Consultation-Liaison Psychiatry Department of Psychiatry [facility]? Medications Inpatient Acetaminophen Tablet, 650 mg, By Mouth, Every 8 hours, PRN escitalopram 10 mg oral tablet, 10 mg, By Mouth, Daily in AM HydrOXYzine Pamoate Capsule, 50 mg, By Mouth, Every 6 hours, PRN Nicotine Gum, 2 mg, Chew, Every hour, PRN Nicotine Topical, 14 mg, Topically, Daily Remove Patch, 1 each, Topically, Daily traZODone 50 mg oral tablet, 50 mg, By Mouth, Daily at bedtime, PRN Allergies Bee Stings No Known Medication Allergies Lab Results Event Name?? Event Result?? Normal Range?? Date/Time?? WBC 7.4 k/mm3 4 k/mm3 - 11 k/mm3 07/04/23 09:11:00 RBC 5.05 m/mm3 4.7 m/mm3 - 6.1 m/mm3 07/04/23 09:11:00 Hgb 15.2 Gm/dL 13.7 Gm/dL - 17.1 Gm/dL 07/04/23 09:11:00 Hct 43.8 % 40.5 % - 50 % 07/04/23 09:11:00 MCV 86.7 femtoliters 80 femtoliters - 94 femtoliters 07/04/23 09:11:00 MCH 30.1 pg 27 pg - 34 pg 07/04/23 09:11:00 MCHC 34.7 g/dL 33 g/dL - 37 g/dL 07/04/23 09:11:00 Platelet Count 331 k/mm3 150 k/mm3 - 460 k/mm3 07/04/23 09:11:00 RDW-SD 38.5 femtoliters ?? 07/04/23 09:11:00 MPV 9 femtoliters??Low 9.4 femtoliters - 12.4 femtoliters 07/04/23 09:11:00 Nucleated RBC (Automated) 0 #/100 WBC'S ?? 07/04/23 09:11:00 Abs. NRBC 0 k/mm3 ?? 07/04/23 09:11:00 Abs. Neut 5 k/mm3 1.3 k/mm3 - 7 k/mm3 07/04/23 09:11:00 Abs. Lymph 1.5 k/mm3 0.8 k/mm3 - 3.1 k/mm3 07/04/23 09:11:00 Abs. Morgan 0.8 k/mm3 0.4 k/mm3 - 1.3 k/mm3 07/04/23 09:11:00 Abs. Eo 0 k/mm3 0 k/mm3 - 0.4 k/mm3 07/04/23 09:11:00 Abs. Baso 0 k/mm3 0 k/mm3 - 0.1 k/mm3 07/04/23 09:11:00 Neut % 67.4 % 44 % - 76 % 07/04/23 09:11:00 Lymph % 20.3 % 15 % - 43 % 07/04/23 09:11:00 Morgan % 11 %??High 4.5 % - 10.5 % 07/04/23 09:11:00 Eos % 0.4 % 0 % - 6 % 07/04/23 09:11:00 Baso % 0.4 % 0 % - 2 % 07/04/23 09:11:00 Imm Gran 0.5 % ?? 07/04/23 09:11:00 Abs. Imm Gran 0 k/mm3 ?? 07/04/23 09:11:00 Sodium 139 mmol/L 133 mmol/L - 145 mmol/L 07/04/23 08:25:00 Potassium 3.9 mmol/L 3.6 mmol/L - 5.2 mmol/L 07/04/23 08:25:00 Chloride 102 mmol/L 98 mmol/L - 107 mmol/L 07/04/23 08:25:00 Bicarbonate Level 23 mmol/L 22 mmol/L - 29 mmol/L 07/04/23 08:25:00 Anion Gap 14 4 ??- 17 07/04/23 08:25:00 Glucose Level 98 mg/dL 70 mg/dL - 99 mg/dL 07/04/23 08:25:00 BUN 7 mg/dL 6 mg/dL - 20 mg/dL 07/04/23 08:25:00 Creatinine-Blood 0.65 mg/dL??Low 0.7 mg/dL - 1.2 mg/dL 07/04/23 08:25:00 Estimated GFR Creatinine 131 ML/MIN/1.73 M2 ?? 07/04/23 08:25:00 Calcium 9 mg/dL 8.6 mg/dL - 10.5 mg/dL 07/04/23 08:25:00 TSH 0.39 uIU/mL??Low 0.4 uIU/mL - 4.2 uIU/mL 07/04/23 08:25:00 Free T4 1.61 ng/dL 0.7 ng/dL - 1.8 ng/dL 07/04/23 08:25:00 Ethanol, Serum or Plasma 137 mg/dL Abnormal ?? 07/04/23 08:25:00 Salicylate Level <0.3??Low 3 mg/dL - 10 mg/dL 07/04/23 08:25:00 Barbiturate Screen, Urine NONE DETECTED ?? 07/04/23 11:30:00 Cannabinoid Screen, Urine POSITIVE Abnormal ?? 07/04/23 11:30:00 Cocaine Metabolite Screen, Urine POSITIVE Abnormal ?? 07/04/23 11:30:00 Benzodiazepine Screen, Urine NONE DETECTED ?? 07/04/23 11:30:00 Amphetamine Screen, Urine NONE DETECTED ?? 07/04/23 11:30:00 Opiate Screen, Urine NONE DETECTED ?? 07/04/23 11:30:00 Acetaminophen Level <5??Low 15 mg/L - 30 mg/L 07/04/23 08:25:00 COVID-19 by RT-PCR NEGATIVE ?? 07/04/23 09:13:00 Est Creatinine Clearance 130.62 mL/min ?? 07/04/23 10:17:02 ? Diagnostic Results (07/04/2023 08:[address] Head/Brain W/O Contrast) No acute intracranial abnormality. [1] ?? (07/04/2023 08:[address] Maxilloface W/O Contrast) No acute maxillofacial fracture. ?? Mild paranasal sinus disease. [2] ?? (07/04/2023 09:03 EDT Knee 1 or 2 Views Left) No bone lesions or fractures. ?? No arthritic changes. No osteochondral defects or intra-articular loose bodies. ?? No evidence of joint effusion. [3] ?? (07/04/2023 09:03 EDT Knee 1 or 2 Views Right) No bone lesions or fractures. ?? No arthritic changes. No osteochondral defects or intra-articular loose bodies. ?? No evidence of joint effusion. [4] ?? QTC Calculation(Bazett): 437 ??ms [5] [1]??CT Head/Brain W/O Contrast; Chapito Alcala MD 07/04/2023 08:56 EDT [2]??CT Maxilloface W/O Contrast; Chapito Alcala MD 07/04/2023 08:56 EDT [3]??Knee 1 or 2 Views Left; Dave Bridges MD 07/04/2023 09:03 EDT [4]??Knee 1 or 2 Views Right; Dave Bridges MD 07/04/2023 09:03 EDT [5]??12 Lead ECG; Ketan Lo MD 02/19/2023 16:23 EST Patient Care team information Care Team Personnel Name: Matteo Church Position: [facility] Outreach Member Role: PCP Address: Address: [address] [place] [id number]- Name: Rochelle Anderson RN Position: [facility] RN Member Role: Primary Care Nurse Name: Dee Brown RN Position: [facility] RN Member Role: Primary Care Nurse Name: Sherie Díaz RN Position: [facility] RN Member Role: Primary Care Nurse Name: Brent Wayne MD Position: [facility] Physician - Behavioral Health Member Role: Lifetime Consulting Physician Address: Address: [address] [place] [id number]- Care Team Related Persons Name: RENEE ARCOS Address: home [address] [place] [address] Name: RENEE ARCOS Address: [address] [place] [address] Name: KHALIDA OROZCO Address: [address] [place] [address] Name: COLBY LOPEZ Name: KAPIL BALLARD Address: [address] [place] [address] Name: LORI DE JESUS Address: home [address] [place] [address]
--- OUTSIDE RECORDS SUMMARY | 2023-11-05 23:20 | XMS_ITS | Continuity of Care Document ---
Author Organization [facility] ter Address [address] [place] [address]- Care Team Providers Care Hydroblaster Name Role Phone Not on Staff, PCP Primary Care Physician Unavail able Encounter [facility] Date(s): 11/02/21 - 11/02/[address] [address]- Discharge Disposition: A-D/C Walkout Attending Physician: Not on Staff, Attending MD Admitting Physician: Not on Staff, Admitting MD Referring Physician: Not on Staff, Referring [...] Gm, 0 Refills, Maintenance, 10/13/21 11:28:00 EDT, Nancy, [facility] #[id number], Partial fill upon patient request if the prescription is for a schedule II opioid drug., Topically 2 times a day, 15... Start Date: 10/13/21 Status: Ordered escitalopram 10 mg oral tablet 1 tablet = 10 mg, By Mouth, Daily, # 30 tablet, 0 Refills, Maintenance, 10/13/21 11:30:00 EDT, Tablet, [facility] #[id number], Partial fill upon patient request if the prescription is for a schedule II opioid drug., 157, cm, 10/13/21 10:46:00 EDT... Start Date: 10/13/21 Status: Ordered nicotine 14 mg/24 hr transdermal film, extended release 1 patch, Topically, Daily, # 30 patch, 0 Refills, Maintenance, 10/13/21 11:30:00 EDT, Patch, [facility] #[id number], Partial fill upon patient request if the prescription is for a schedule II opioid drug., 1 patch Topically Daily, 157, cm, ... Start Date: 10/13/21 Status: Ordered Nicotine 2 mg gum = 2 mg, Chew, Every hour, PRN Other, Nicotine Cravings, # 160 each, 0 Refills, Maintenance, 10/13/21 11:30:00 EDT, Gum, [facility] #[id number], Partial fill upon patient request if the prescription is for a schedule II opioid drug., 157, cm, 09/20... Start Date: 10/13/21 Status: Ordered traZODone 50 mg oral tablet 50 mg, 1, tablet, By Mouth, Daily at bedtime, PRN, May repeat x1 if first dose ineffective, # 30 tablet, Refills 0, Tot. Refills 0, Maintenance, Insomnia, 10/13/21 11:30:00 EDT, Route to Pharmacy Electronically, [facility] #[id number], Partial fi... Start Date: 10/13/21 Status: Ordered Problem List Condition Effective Dates Status Health Status Inform ant Hallucinations(Confirmed) Active Suicidal behavior(Confirmed) Active Vital Signs Most recent to oldest [Reference Range]: 1 Oxygen Saturation [94-100 %] 100 % (11/02/21 3:12 AM) Pulse Rate [55-90 bpm] 110 bpm *H* (11/02/21 3:12 AM) Mode of Delivery (Oxygen) Room air (11/02/21 3:12 AM) Social History Social History Type Response Smoking Status Use: 1 PPD; Interest ed in cessation: Yes; Patient wants NRT during admission Yes;Never entered on: 10/11/21 Sex Care Team Personnel Name: Not on Staff, PCP
--- OUTSIDE RECORDS SUMMARY | 2023-11-05 23:20 | XMS_ITS | Continuity of Care Document ---
Author Organization [facility] Address [address] [place] [id number]- Care Team Providers Care Airplane Dispatch Clerk Name Role Phone Not on Staff, PCP Primary Care Physician Unavail able Encounter [facility] Date(s): 04/18/19 - 04/18/[address] [id number]- [facility] Discharge Disposition: A-D/C Home Attending Physician: Lorenzo Mccarty MD Admitting Physician: Lorenzo Mccarty MD Referring Physician: Not on Staff, Referring MD Allergies, Adverse Reactions, Alerts No Known Medication Allergies Substance Reaction Severity Status NKA Active Medications ibuprofen 600 mg oral tablet 1 tablet = 600 mg, By Mouth, 4 times a day, # 28 tablet, 0 Refills, Maintenance, 07/10/14 5:24:25, Tablet Start Date: 07/10/14 Stop Date: 07/17/14 Status: Ordered ibuprofen 800 mg oral tablet 1 tablet = 800 mg, By Mouth, 3 times a day, # 42 tablet, 0 Refills, Maintenance, 06/29/14 14:22:55,Tablet Start Date: 06/29/14 Stop Date: 07/13/14 Status: Ordered naproxen sodium 550 mg oral tablet 1 tablet = 550 mg, By Mouth, 2 times a day, PRN for arthritis, # 20 tablet, 0 Refills, Maintenance,04/18/19 13:01:00 EST, Tablet, [id number], 158, cm, 04/18/19 12:33:00 EST, Height, 66.4, kg, 04/18/19 12:33:00 EST, Dry Weight Start Date: 04/18/19 Status: Ordered Nicoderm C-Q 21 mg/24 hr transdermal film, extended release 1 patch, Topically, Daily, # 14 patch, 0 Refills, Patch Start Date: 08/15/10 Stop Date: 08/29/10 Status: Ordered Problem List Condition Effective Dates Status Health Status Inform ant Hallucinations(Confirmed) Active Suicidal behavior(Confirmed) Active Vital Signs Most recent to oldest [Reference Range]: 1 Height 158 cm (04/18/19 12:33 PM) Weight 66.4 kg (04/18/19 12:33 PM) Oxygen Saturation [94-100 %] 100 % (04/18/19 12:33 PM) Pulse Rate [55-90 bpm] 93 bpm *H* (04/18/19 12:33 PM) Blood Pressure [90-138/55-84 mm Hg] 144/ 70mm Hg *H* (04/18/19 12:33 PM) Respiratory Rate [16-30 br/min] 16 br/mi n (04/18/19 12:33 PM) Temperature [96.8-100.4 DegF] 98.9 DegF (04/18/19 12:33 PM) Mode of Delivery (Oxygen) Room air (04/18/19 12:33 PM) Temperature Route Temporal (04/18/19 12:33 PM) Dry Weight 66.4 kg (04/18/19 12:33 PM) Weight Obtained Via Standing scale (04/18/19 12:33 PM) Social History Social History Type Response Smoking Status Current every day glen gordon entered on: 06/28/14 Sex
--- OUTSIDE RECORDS SUMMARY | 2023-11-05 23:20 | XMS_ITS | Continuity of Care Document ---
Author Organization [facility] Address [address] [place] [id number]- Care Team Providers Care Flosser Name Role Phone Not on Staff, PCP Primary Care Physician Unavail able Encounter [facility] Date(s): 09/24/19 - 09/24/[address] [address]- [facility] Discharge Disposition: A-D/C Home Attending Physician: Lorenzo Pichardo MD Admitting Physician: Lorenzo Pichardo MD Referring Physician: Not on Staff, Referring MD Allergies, Adverse Reactions, Alerts No Known Medication Allergies Substance Reaction Severity Status NKA Active Medications amoxicillin 875 mg oral tablet 1 tablet = 875 mg, By Mouth, 2 times a day, for 10 days, # 20 tablet, 0 Refills, Acute 10/04/19 16:48:00 EDT, 09/24/19 16:48:00 EDT, Tablet, [id number], 158, cm, 09/24/19 15:42:00 EDT, Height, 68.5, kg, 09/24/19 15:42:00 EDT, Dry Weight Start Date: 09/24/19 Stop Date: 10/04/19 Status: Ordered Cortisporin-TC 0.3%-1%-0.33%-0.05% suspension 2 drops, Ears, Both, 4 times a day, for 5 days, # 5 mL, 0 Refills, Acute 09/29/19 16:48:00 EDT, 09/24/19 16:48:00 EDT, Suspension, [id number], 2 drops Ears, Both 4 times a day,x5 days, 158, cm, 09/24/19 15:42:00 EDT, Height, 68.5, kg, 09/24/19... Start Date: 09/24/19 Stop Date: 09/29/19 Status: Ordered ibuprofen 400 mg oral tablet 400 mg, 1, tablet, By Mouth, 3 times a day, PRN, with food or milk, # 10 tablet, Refills 0, Tot. Refills 0, Maintenance, for fever, 09/24/19 16:48:00 EDT, Route to Pharmacy Electronically, [facility] #[id number], 158, cm, 09/24/19 15:42:00 EDT, Height, 68... Start Date: 09/24/19 Status: Ordered naproxen sodium 550 mg oral tablet 1 tablet = 550 mg, By Mouth, 2 times a day, PRN for arthritis, # 20 tablet, 0 Refills, Maintenance,04/18/19 13:01:00 EST, Tablet, [facility] #[id number], 158, cm, 04/18/19 12:33:00 EST, Height, 66.4, kg, 04/18/19 12:33:00 EST, Dry Weight Start Date: 04/18/19 Status: Ordered Problem List Condition Effective Dates Status Health Status Inform ant Hallucinations(Confirmed) Active Suicidal behavior(Confirmed) Active Vital Signs Most recent to oldest [Reference Range]: 1 Height 158 cm (09/24/19 3:42 PM) Weight 68.5 kg (09/24/19 3:42 PM) Oxygen Saturation [94-100 %] 97 % (09/24/19 3:42 PM) Pulse Rate [55-90 bpm] 80 bpm (09/24/19 3:42 PM) Blood Pressure [90-138/55-84 mm Hg] 115/ 70mm Hg (09/24/19 3:42 PM) Respiratory Rate [16-30 br/min] 18 br/mi n (09/24/19 3:42 PM) Temperature [96.8-100.4 DegF] 97.8 DegF (09/24/19 3:42 PM) Mode of Delivery (Oxygen) Room air (09/24/19 3:42 PM) Blood pressure sites Arm, left (09/24/19 3:42 PM) Temperature Route Oral (09/24/19 3:42 PM) Dry Weight 68.5 kg (09/24/19 3:42 PM) Social History Social History Type Response Smoking Status Current every day glen gordon entered on: 06/28/14 Sex
--- OUTSIDE RECORDS SUMMARY | 2023-11-05 23:20 | XMS_ITS | Continuity of Care Document ---
Author Organization [facility] ter Address [address] [place] [address]- Care Team Providers Care Drill Press Hand Name Role Phone Not on Staff, PCP Primary Care Physician Unavail able Encounter [facility] Date(s): 06/07/22 - 06/07/[address] [address]- Encounter Diagnosis Chest pain(Final) - 06/07/22 Discharge Disposition: A-D/C Home Attending Physician: Sergio Lara MD Admitting Physician: Sergio Lara MD Referring Physician: Not on Staff, Referring [...] Gm, 0 Refills, Maintenance, 10/13/21 11:28:00 EDT, [id number], Partial fill upon patient request if the prescription is for a schedule II opioid drug., Topically 2 times a day, 15... Start Date: 10/13/21 Status: Ordered escitalopram 10 mg oral tablet 1 tablet = 10 mg, By Mouth, Daily, # 30 tablet, 0 Refills, Maintenance, 10/13/21 11:30:00 EDT, Tablet, [facility] #[id number], Partial fill upon patient request if the prescription is for a schedule II opioid drug., 157, cm, 10/13/21 10:46:00 EDT... Start Date: 10/13/21 Status: Ordered nicotine 14 mg/24 hr transdermal film, extended release 1 patch, Topically, Daily, # 30 patch, 0 Refills, Maintenance, 10/13/21 11:30:00 EDT, Patch, [facility] #[id number], Partial fill upon patient request if the prescription is for a schedule II opioid drug., 1 patch Topically Daily, 157, cm, ... Start Date: 10/13/21 Status: Ordered Nicotine 2 mg gum = 2 mg, Chew, Every hour, PRN Other, Nicotine Cravings, # 160 each, 0 Refills, Maintenance, 10/13/21 11:30:00 EDT, Gum, [facility] #[id number], Partial fill upon patient request if the prescription is for a schedule II opioid drug., 157, cm, 2... Start Date: 10/13/21 Status: Ordered traZODone 50 mg oral tablet 50 mg, 1, tablet, By Mouth, Daily at bedtime, PRN, May repeat x1 if first dose ineffective, # 30 tablet, Refills 0, Tot. Refills 0, Maintenance, Insomnia, 10/13/21 11:30:00 EDT, Route to Pharmacy Electronically, [facility] #[id number], Partial fi... Start Date: 10/13/21 Status: Ordered Problem List Condition Confirmation Course Effective Dates Status Health atus Informant Hallucinations Confirmed Active Suicidal behavior Confirmed Active Results Radiology Reports * Exam Date Time Procedure Performing Provider Status 06/07/22 1:44 PM Chest 2 Views Frontal and Lat Zeferino Corona; Auth (Verified) Notes: (Chest 2 Views Frontal and Lat) Reason For Exam: Angina RESULT: Chest 2 Views Frontal and Lat Chest 2 Views Frontal and Lat Hx of Present Illness: ? SI; Reason: Angina; Clinical Question(s): Pneumonia COMPARISON: Multiple prior examinations the most recent dated 09/28/2021. FINDINGS: LINES AND TUBES: None. LUNGS AND PLEURA: Clear lungs. Normal pulmonary vascularity. No pleural effusion. No pneumothorax. HEART, MEDIASTINUM AND TERRY: Heart is normal in size. Normal mediastinal and hilar contour. BONES AND SOFT TISSUES: No acute abnormality. IMPRESSION: No acute abnormality. WSN: [id number] Ordering Physician: Trinidad Austin Dictated By: Wolfgang Alvarez MD, V Dictated Date/Time: 06/07/22 1:58 pm Reviewed By: Wolfgang Alvarez MD, V Signed By: Wolfgang Alvarez MD, V Signed Date/Time: 06/07/22 1:58 pm Transcribed By: FELIBERTO Transcribed Date/Time: 06/07/22 1:57 pm Vital Signs Most recent to oldest [Reference Range]: 1 2 Height 158 cm (06/07/22 12:18 PM) 158 cm (06/07/22 12:10 PM) Oxygen Saturation [94-100 %] 100 % (06/07/22 4:01 PM) 97 % (06/07/22 12:10 PM) Pulse Rate [55-90 bpm] 61 bpm (06/07/22 4:01 PM) 106 bpm *H* (06/07/22 12:10 PM) Blood Pressure [90-138/55-84 mm Hg] 129/ 79mm Hg (06/07/22 4:01 PM) 151/72mm Hg *H* (06/07/22 12:10 PM) Respiratory Rate [16-30 br/min] 18 br/mi n (06/07/22 4:01 PM) 18 br/min (06/07/22 12:10 PM) Temperature [96.8-100.4 DegF] 98.6 DegF (06/07/22 4:01 PM) 99.2 DegF (06/07/22 12:10 PM) Mode of Delivery (Oxygen) Room air (06/07/22 4:01 PM) Room air (06/07/22 12:10 PM) Blood pressure sites Arm, right (06/07/22 4:01 PM) Arm, left (06/07/22 12:10 PM) Temperature Route Oral (06/07/22 4:01 PM) Oral (06/07/22 12:10 PM) Social History Social History Type Response Smoking Status Use: 1 PPD; Interest ed in cessation: Yes; Patient wants NRT during admission Yes;Never entered on: 10/11/21 Sex EKG study * Event Display: ECG 12-Lead Authored Date: Please click on pdf link to open report * Event Display: ECG 12-Lead Authored Date: Ventricular Rate: 97 BPM Atrial Rate: 97 BPM P-R Interval: 152 ms QRS Duration: 88 ms Q-T Interval: 380 ms QTC Calculation(Bazett): 482 ms P [place]: 66 degrees R [place]: 92 degrees T [place]: 60 degrees Normal sinus rhythm Right atrial enlargement Rightward axis Prolonged QT Abnormal ECG When compared with ECG of 08-OCT-2021 14:56, No significant change was found Confirmed by SERA FLORES MD ([id number]) on 06/07/2022 4:16:15 PM Perryman: SERA FLORES MD Note * Trinidad Craig: PERFORM Event Display: Patient Education Leaflets Authored Date: Cocaine and Crack Abuse ?? [id number] Cocaine and Crack Abuse Cocaine is typically snorted or injected into a vein. It can also be rubbed onto the gums.??Crack is made from cocaine. It can be smoked for a stronger effect. Cocaine causes a very powerful mental and physical dependence.?? Once you have a dependence, you'll do just about anything to get the drug and have the feeling it gives you. This can increase your risk for: ??? Overdose that may lead to ??? Loss of your job, your home, or your family ??? Accidental injuries to yourself or others while you are under the influence of the drug (in a car or at home) ??? Arrest, conviction, and fdc sentence for possession of an illegal substance or for driving underthe influence Medically, cocaine can affect every organ in your body.??It can cause: ??? Chest pain, heart rhythm problem (arrhythmia), heart attack, and heart failure ??? Very high blood pressure ??? Severe headache, seizures, loss of consciousness, and stroke ??? Anxiety, psychosis, confusion, paranoia, and hallucinations ??? Nasal damage from snorting ??? Nausea, belly (abdominal) pain, and loss of appetite ??? Chronic bronchitis and shortness of breath from smoking ??? Higherrisk for HIV infection, hepatitis B or C, and heart infection. This is from IV use, risky sexual behavior while high, or both.? Kidney failure Home care These tips will help you care for yourself at home: ??? Admit you have a drug problem. Ask for help from your family and close friends. ??? See a mental health provider or counselor if you have depression or anxiety. ??? Join a self-help group for drug abuse. ??? Stay away from people who abuse drugs themselves or who tempt you to continue abusing the drug. ??? Eat a balanced diet and start a regular exercise program. If you continue to use IV cocaine, lower your risk of getting or spreading infection by: ??? Using only sterile equipment ??? Not reusing or sharing equipment ??? Cleaning your skin before injecting ?? Follow-up care Follow up with your healthcare provider, or as advised. Contact 1 of the resources below for help: ??? Substance Abuse and Mental Health Treatment Administration (SAMHSA) at www.samhsa.gov/find-treatment or 857-047-ZKOK ??? [facility] [place] on Drug Abuse (CARL[facility]) at www.drugabuse.gov ? National Crow on Alcoholism and Drug Dependence at www.ncadd.org ??? Narcotics Anonymous at www.na.org ?? Call 911 Call 911 if any of these occur: ??? Seizure ??? Hard time breathing or slow, irregular breathing ??? Chest pain ??? Sudden weakness on 1 side of your body or sudden trouble speaking ??? Very drowsy or trouble waking up ??? Fast heart rate ?? When to get medical advice Call your healthcare provider right away if any of the following occur: ??? Agitation, anxiety, or unable to sleep ??? Unintended weight loss. This means more than 10 to 15 pounds over 6 months without dieting. ??? Hallucination, severe depression, or thoughts of harming yourself or another ??? Fever of 100.4??F??(38??C) or higher, or as advised by your provider ??? Redness, pain, or swelling at an injection site ??? Loss of vision or decreased vision ?? Last Reviewed Date: 2021 ?? [employer]. All rights reserved. This information is not intended as a substitute for professional medical care. Always follow your healthcare professional's instructions. ?? * Trinidad Craig: PERFORM Event Display: Patient Education Leaflets Authored Date: [id number] Uncertain Causes of Chest Pain ?? [id number] Uncertain Causes of Chest Pain Chest pain can happen for a number of reasons. Sometimes the cause can't be determined. If your??condition does not seem serious, and your pain does not appear to be coming from your heart, your healthcare provider may recommend watching it closely. Sometimes the signs of a serious problem take more time to appear. Many problems not related to your heart can cause chest pain. These include: ??? Musculoskeletal. Costochondritis is an inflammation of the tissues around the ribs that can occur from trauma or overuse injuries, or a strain of the muscles of the chest wall. ??? Respiratory. Pneumonia, collapsed lung (pneumothorax), or inflammation of the lining of the chest and lungs (pleurisy). ??? Gastrointestinal. Esophageal reflux, heartburn, ulcers, or gallbladder disease. ??? Anxiety and panic disorders ??? Nerve compression and inflammation ??? Rare problems such as aortic aneurysm or aortic dissection (a swelling of the large artery coming out of the heart or a tear in the wall of the artery), or pulmonary embolism (a blood clot in the lungs). Home care After your visit, follow these recommendations: ??? Rest today and avoid strenuous activity. ??? Take any prescribed medicine as directed. ??? Be aware of any recurrent chest pain and notice any changes ?? Follow-up care Follow up with your healthcare provider if you don't start to feel better within 24 hours, or as advised. ?? Call 911 Call 911 if any of these occur: ??? A change in the type of pain: if it feels different, becomes more severe, lasts longer, or begins to spread into your shoulder, arm, neck, jaw or back ??? Shortness of breath or increased pain with breathing ??? Weakness, dizziness, or fainting ??? Rapid heartbeat ??? Crushing sensation in your chest ??? Coughing up more than a small amount of blood. ?? When to seek medical advice Call your healthcare provider right away if any of the following occur: ??? Cough with dark coloredsputum (phlegm) or small amount of blood ??? Fever of 100.4??F??(38??C) or higher, or as directed by your healthcare provider ??? Swelling, pain or redness in one leg ?? Last Reviewed Date: 2021 ?? [address] All rights reserved. This information is not intended as a substitute for professional medical care. Always follow your healthcare professional's instructions. ?? * [employer] , CIS S: TRANSCRIBE Wolfgang Alvarez MD, V: VERIFY Event Display: Result: Authored Date: [id number] Chest 2 Views Frontal and Lat Hx of Present Illness: ? SI; Reason: Angina; Clinical Question(s): Pneumonia COMPARISON: Multiple prior examinations the most recent dated 09/28/2021. FINDINGS: LINES AND TUBES: None. LUNGS AND PLEURA: Clear lungs. Normal pulmonary vascularity. No pleural effusion. No pneumothorax. HEART, MEDIASTINUM AND TERRY: Heart is normal in size. Normal mediastinal and hilar contour. BONES AND SOFT TISSUES: No acute abnormality. IMPRESSION: No acute abnormality. WSN: [id number] Ordering Physician: Trinidad Austin Dictated By: Wolfgang Alvarez MD, V Dictated Date/Time: 06/07/22 1:58 pm Reviewed By: Wolfgang Alvarez MD, V Signed By: Wolfgang Alvarez MD, V Signed Date/Time: 06/07/22 1:58 pm Transcribed By: FELIBERTO Transcribed Date/Time: 06/07/22 1:57 pm Patient Care team information Care Team Personnel Name: Rochelle Anderson RN Position: S RN Member Role: Primary Care Nurse Name: Not on Staff, PCP Position: [facility] Physician (General Medicine) Member Role: PCP Name: Dee Brown RN Position: S RN Member Role: Primary Care Nurse Name: Sherie Díaz RN Position: S RN Member Role: Primary Care Nurse Name: Brent Wayne MD Position: [facility] Psychiatry MD Member Role: Lifetime Consulting Physician Address: Address: [address] [place] [address]- Name: Jane CAMP, Sergio Chu Position: [facility] ED Medicine MD Member Role: Admitting Physician Address: Address: [address] [place] [address]- Name: Kyaw Tenorio RN Position: [facility] ED RN W/OE and Tasks Member Role: Patient Care Provider Name: Kennedy Domniguez Position: [facility] ED TA [facility] Member Role: Middle School Band Teacher Name: Trinidad Craig Position: [facility] Associate Professional Member Role: ED Physician Telegraph Repeater Technician Address: Address: [address] [place] [address]- Care Team Related Persons Name: RENEE ARCOS Address: home [address] [place] [address] Name: RENEE ARCOS Address: home [address] [place] [address] Name: KAPIL BALLARD Address: home [address] [place] [address] Name: LORI DE JESUS Address: home [address] [place] [address]
--- OUTSIDE RECORDS SUMMARY | 2023-11-05 23:20 | XMS_ITS | Continuity of Care Document ---
Author Organization [facility] ter Address [address] [place] [address]- Care Team Providers Care Automotive Product Specialist Name Role Phone Not on Staff, PCP Primary Care Physician Unavail able Encounter [facility] Date(s): 06/16/21 - 06/16/[address] [address]- Encounter Diagnosis Suicidal intent(Final) - 06/16/21 Cocaine use(Final) - 06/16/21 Discharge Disposition: A-D/C Home Attending Physician: Devon Ceballos MD Admitting Physician: Devon Ceballos MD Referring Physician: Not on Staff, Referring [...] Exam Date Time Procedure Performing Provider Status 06/16/21 4:49 PM Chest Portable Schneider, Guillermo; Auth (Ve rified) Notes: (Chest Portable) Reason For Exam: Shortness of Breath RESULT: Chest Portable Chest Portable performed upright at 4:44 PM Reason: Shortness of Breath; Clinical Question(s): CHF COMPARISON: Chest radiograph 12/20/2015 FINDINGS: LINES AND TUBES: None. LUNGS AND PLEURA: Stable blunting of the right costophrenic angle otherwise the lungs are clear. No pleural effusion. No pneumothorax. HEART, MEDIASTINUM AND TERRY: Heart is normal in size. Normal upper mediastinal and hilar contour. BONES AND SOFT TISSUES: No acute abnormality. IMPRESSION: No acute abnormality. I have personally reviewed the images and I agree with this report. WSN: [id number] Ordering Physician: Santiago Mckeon Dictated By: Musa Altamirano DO Dictated Date/Time: 06/16/21 4:54 pm Reviewed By: Shayy Solis MD Signed By: Shayy Solis MD Signed Date/Time: 06/16/21 4:59 pm Transcribed By: FELIBERTO Transcribed Date/Time: 06/16/21 4:51 pm Vital Signs Most recent to oldest [Reference Range]: 1 2 3 Oxygen Saturation [94-100 %] 98 % (06/16/21 8:58 PM) 97 % (06/16/21 3:43 PM) 99 % (06/16/21 2:38 PM) Pulse Rate [55-90 bpm] 88 bpm (06/16/21 8:58 PM) 87 bpm (06/16/21 3:43 PM) 90 bpm (06/16/21 2:38 PM) Blood Pressure [90-138/55-84 mm Hg] 129/72mm Hg (06/16/21 8:58 PM) 133/75mm Hg (06/16/21 3:43 PM) 136/76mm Hg (06/16/21 2:38 PM) Respiratory Rate [16-30 br/min] 20 br/min (06/16/21 8:58 PM) 18 br/min (06/16/21 3:43 PM) 18 br/min (06/16/21 2:38 PM) Temperature [96.8-100.4 DegF] 98.8 DegF (06/16/21 8:58 PM) 98.4 DegF (06/16/21 3:43 PM) 98.4 DegF (06/16/21 2:38 PM) Mode of Delivery (Oxygen) Room air (06/16/21 8:58 PM) Room air (06/16/21 3:43 PM) Room air (06/16/21 2:38 PM) Blood pressure sites Arm, right (06/16/21 8:58 PM) Arm, right (06/16/21 3:43 PM) Arm, right (06/16/21 2:38 PM) Temperature Route Oral (06/16/21 8:58 PM) Oral (06/16/21 3:43 PM) Oral (06/16/21 2:38 PM) Social History Social History Type Response Smoking Status Current every day glen gordon entered on: 06/28/14 Sex
--- OUTSIDE RECORDS SUMMARY | 2023-11-05 23:20 | XMS_ITS | Continuity of Care Document ---
Author Organization [facility] Address [address] [place] [address]- Care Team Providers Care Skid Adzer Name Role Phone Not on Staff, PCP Primary Care Physician Unavail able Encounter [facility] [id number] Date(s): 09/21/19 - 09/21/[address] [address]- [facility] Encounter Diagnosis Traumatic hematoma of left upper arm(Final) - 09/21/19 Discharge Disposition: A-D/C Home Attending Physician: Sonu Sen MD Admitting Physician: Sonu Sen MD Referring Physician: Not on Staff, Referring [...] Exam Date Time Procedure Performing Provider Status 09/21/19 11:18 AM Elbow Min 3 Views Left Renetta Ruffin; Issa (Verified) Notes: (Elbow Min 3 Views Left) Reason For Exam: Trauma RESULT: Elbow Min 3 Views Left Left elbow 3 views dated September 21, 2019. No prior studies are available. HISTORY: Pain. FINDINGS: This examination shows no evidence of fracture or dislocation. Joint spaces are well preserved. No joint effusion is seen. IMPRESSION: Negative examination. Examination [address]. Thank you for allowing me to participate in the care of this patient. WSN: [id number] Ordering Physician: Sonu Sen Dictated By: Adan Saeed MD Dictated Date/Time: 09/21/19 11:33 a Reviewed By: Adan Saeed MD Signed By: Adan Saeed MD Signed Date/Time: 09/21/19 11:33 am Transcribed By: FELIBERTO Transcribed Date/Time: 09/21/19 11:32 am Vital Signs Most recent to oldest [Reference Range]: 1 2 Height 157 cm (09/21/19 10:37 AM) 157 cm (09/21/19 10:23 AM) Weight 68.3 kg (09/21/19 10:37 AM) 68.3 kg (09/21/19 10:23 AM) Oxygen Saturation [94-100 %] 100 % (09/21/19 10:23 AM) Pulse Rate [55-90 bpm] 84 bpm (09/21/19 10:23 AM) Body Mass Index [18.5-24.99] 27.71 *H* (09/21/19 10:23 AM) Blood Pressure [90-138/55-84 mm Hg] 121/ 58mm Hg (09/21/19 10:23 AM) Respiratory Rate [16-30 br/min] 22 br/mi n (09/21/19 10:23 AM) Temperature [96.8-100.4 DegF] 98.6 DegF (09/21/19 10:23 AM) Temperature Route Temporal (09/21/19 10:23 AM) Dry Weight 68.3 kg (09/21/19 10:37 AM) 68.3 kg (09/21/19 10:23 AM) Weight Obtained Via Standing scale (09/21/19 10:23 AM) Dry Weight Obtained Via Standing scale (09/21/19 10:23 AM) Social History Social History Type Response Smoking Status Current every day glen gordon entered on: 06/28/14 Sex
--- OUTSIDE RECORDS SUMMARY | 2023-11-05 23:20 | XMS_ITS | Continuity of Care Document ---
Author Organization [facility] ter Address [address] [place] [address]- Care Team Providers Care Assistant Principal Name Role Phone Not on Staff, PCP Primary Care Physician Unavail able Encounter [facility] Date(s): 08/02/21 - 08/02/[address] [address]- Discharge Disposition: A-D/C Walkout Attending Physician: Not [...] 09/24/19 16:48:00 EDT, Route to Pharmacy Electronically, [facility]/pharmacy #[id number], 158, cm, 09/24/19 15:42:00 EDT, [...] Exam Date Time Procedure Performing Provider Status 08/02/21 9:44 AM Chest 2 Views Frontal and Lat Rica Wallis; Auth (Verified) Notes: (Chest 2 Views Frontal and Lat) Reason For Exam: Chest Pain;Other: RESULT: Chest 2 Views Frontal and Lat Chest 2 Views Frontal and Lat INDICATION: Chest pain COMPARISON: With recent 06/08/2021 FINDINGS: LINES AND TUBES: None. LUNGS AND PLEURA: Clear lungs. Normal pulmonary vascularity. No pleural effusion. No pneumothorax. HEART, MEDIASTINUM AND TERRY: Heart is normal in size. Normal upper mediastinal and hilar contour. No pneumomediastinum. BONES AND SOFT TISSUES: Normal. IMPRESSION: Normal. WSN: [id number] Ordering Physician: Lakhwinder Robert Dictated By: Alpesh Melendez MD Dictated Date/Time: 08/02/21 9:47 am Reviewed By: Alpesh Melendez MD Signed By: Alpesh Melendez MD Signed Date/Time: 08/02/21 9:47 am Transcribed By: FELIBERTO Transcribed Date/Time: 08/02/21 9:45 am Vital Signs Most recent to oldest [Reference Range]: 1 2 Height 158 cm (08/02/21 10:14 AM) Oxygen Saturation [94-100 %] 97 % (08/02/21 10:14 AM) 100 % (08/02/21 9:18 AM) Pulse Rate [55-90 bpm] 98 bpm *H* (08/02/21 10:14 AM) 116 bpm *H* (08/02/21 9:18 AM) Blood Pressure [90-138/55-84 mm Hg] 154/ 88mm Hg *H* (08/02/21 10:14 AM) Temperature [96.8-100.4 DegF] 98.5 DegF (08/02/21 10:14 AM) Mode of Delivery (Oxygen) Room air (08/02/21 10:14 AM) Room air (08/02/21 9:18 AM) Blood pressure sites Arm, right (08/02/21 10:14 AM) Temperature Route Oral (08/02/21 10:14 AM) Dry Weight Obtained Via Patient/family s tated (08/02/21 10:14 AM) Social History Social History Type Response Smoking Status Current every day glen gordon entered on: 06/28/14 Sex
--- OUTSIDE RECORDS SUMMARY | 2023-11-05 23:20 | XMS_ITS | Continuity of Care Document ---
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 Start Date: 10/13/21 Status: Ordered escitalopram 10 mg oral tablet 1 tablet = 10 mg, By Mouth, Daily, # 30 tablet, 0 Refills, Maintenance, 10/13/21 11:30:00 EDT, Tablet, [facility] #[id number], Partial fill upon patient request if the prescription is for a schedule II opioid drug., 157, cm, 10/13/21 10:46:00 EDT... Start Date: 10/13/21 Status: Ordered nicotine 14 mg/24 hr transdermal film, extended release 1 patch, Topically, Daily, # 30 patch, 0 Refills, Maintenance, 10/13/21 11:30:00 EDT, Patch, [facility] #[id number], Partial fill upon patient request if the prescription is for a schedule II opioid drug., 1 patch Topically Daily, 157, cm, ... Start Date: 10/13/21 Status: Ordered Nicotine 2 mg gum = 2 mg, Chew, Every hour, PRN Other, Nicotine Cravings, # 160 each, 0 Refills, Maintenance, 10/13/21 11:30:00 EDT, Gum, [facility] #[id number], Partial fill upon patient request if the prescription is for a schedule II opioid drug., 157, cm, 2... Start Date: 10/13/21 Status: Ordered traZODone 50 mg oral tablet 50 mg, 1, tablet, By Mouth, Daily at bedtime, PRN, May repeat x1 if first dose ineffective, # 30 tablet, Refills 0, Tot. Refills 0, Maintenance, Insomnia, 10/13/21 11:30:00 EDT, Route to Pharmacy Electronically, [facility] #[id number], Partial fi... Start Date: 10/13/21 Status: Ordered Problem List Condition Confirmation Course Effective Dates Status Health St atus Informant Hallucinations Confirmed Active Suicidal behavior Confirmed Active Vital Signs Most recent to oldest [Reference Range]: 1 2 Oxygen Saturation [94-100 %] 96 % (09/13/22 10:15 AM) 99 % (09/13/22 6:52 AM) Pulse Rate [55-90 bpm] 77 bpm (09/13/22 10:15 AM) 102 bpm *H* (09/13/22 6:52 AM) Blood Pressure [90-138/55-84 mm Hg] 121/ 67mm Hg (09/13/22 10:15 AM) 125/84mm Hg (09/13/22 6:52 AM) Respiratory Rate [16-30 br/min] 18 br/mi n (09/13/22 10:15 AM) 16 br/min (09/13/22 6:52 AM) Temperature [96.8-100.4 DegF] 98.5 DegF (09/13/22 10:15 AM) 98.2 DegF (09/13/22 6:52 AM) Mode of Delivery (Oxygen) Room air (09/13/22 10:15 AM) Room air (09/13/22 6:52 AM) Temperature Route Oral (09/13/22 10:15 AM) Oral (09/13/22 6:52 AM) Social History Social History Type Response Smoking Status Use: 1 PPD; Interest ed in cessation: Yes; Patient wants NRT during admission Yes;Never entered on: 10/11/21 Sex Patient Care team information Care Team Personnel Name: Rochelle Anderson RN Position: [facility] RN Member Role: Primary Care Nurse Name: Not on Staff, PCP Position: [facility] Physician (General Medicine) Member Role: PCP Name: Dee Brown RN Position: [facility] RN Member Role: Primary Care Nurse Name: Sherie Díaz RN Position: [facility] RN Member Role: Primary Care Nurse Name: Brent Wayne MD Position: [facility] Physician - Behavioral Health Member Role: Lifetime Consulting Physician Address: Address: [address] [place] [address] Name: Myesha Alvarez RN Position: [facility] ED RN W/OE and Tasks Member Role: Patient Care Provider Name: Sergio Beach MD Position: [facility] Resident Member Role: ED Resident Address: Address: [address] [place] [address] Name: Gail Zuleta Position: [facility] ED [facility] Member Role: Assistant Professor Nurse Education Name: Janessa Damian MD Position: [facility] Resident Member Role: Admitting Physician Address: Address: [address] [place] [address] Care Team Related Persons Name: RENEE ARCOS Address: home [address] [place] [address] Name: RENEE ARCOS Address: home [address] [place] [address] Name: KAPIL BALLARD Address: home [address] [place] [address] Name: LORI DE JESUS Address: home [address] [place] [address]
--- OUTSIDE RECORDS SUMMARY | 2023-11-05 23:20 | XMS_ITS | Continuity of Care Document ---
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 Name Role Phone Not on Staff, PCP Primary Care Physician Unavail able Encounter [facility] [place] Date(s): 09/03/20 - 09/03/[address] [address]- Encounter Diagnosis Back pain(Final) - 09/03/20 Drug use(Final) - 09/03/20 Discharge Disposition: A-D/C AMA Attending Physician: Francy Hall MD Admitting Physician: [...] 09/24/19 16:48:00 EDT, Route to Pharmacy Electronically, [facility]/pharmacy #[id number], 158, cm, 09/24/19 15:42:00 EDT, Height, [...] Range]: 1 2 Oxygen Saturation [94-100 %] 100 % (09/03/20 10:31 AM) 100 % (09/03/20 7:51 AM) Pulse Rate [55-90 bpm] 65 bpm (09/03/20 10:31 AM) 81 bpm (09/03/20 7:51 AM) Blood Pressure [90-138/55-84 mm Hg] 130/ 75mm Hg (09/03/20 10:31 AM) 149/87mm Hg *H* (09/03/20 7:51 AM) Respiratory Rate [16-30 br/min] 16 br/mi n (09/03/20 10:31 AM) 16 br/min (09/03/20 7:51 AM) Temperature [96.8-100.4 DegF] 98.0 DegF (09/03/20 7:51 AM) Mode of Delivery (Oxygen) Room air (09/03/20 10:31 AM) Room air (09/03/20 7:51 AM) Temperature Route Oral (09/03/20 7:51 AM) Social History Social History Type Response Smoking Status Current every day glen gordon entered on: 06/28/14 Sex
--- OUTSIDE RECORDS SUMMARY | 2023-11-05 23:20 | XMS_ITS | Continuity of Care Document ---
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 Start Date: 10/13/21 Status: Ordered escitalopram 10 mg oral tablet 1 tablet = 10 mg, By Mouth, Daily, # 30 tablet, 0 Refills, Maintenance, 10/13/21 11:30:00 EDT, Tablet, [facility] #[id number], Partial fill upon patient request if the prescription is for a schedule II opioid drug., 157, cm, 10/13/21 10:46:00 EDT... Start Date: 10/13/21 Status: Ordered nicotine 14 mg/24 hr transdermal film, extended release 1 patch, Topically, Daily, # 30 patch, 0 Refills, Maintenance, 10/13/21 11:30:00 EDT, Patch, [facility] #[id number], Partial fill upon patient request if the prescription is for a schedule II opioid drug., 1 patch Topically Daily, 157, cm, ... Start Date: 10/13/21 Status: Ordered Nicotine 2 mg gum = 2 mg, Chew, Every hour, PRN Other, Nicotine Cravings, # 160 each, 0 Refills, Maintenance, 10/13/21 11:30:00 EDT, Gum, [facility] #[id number], Partial fill upon patient request if the prescription is for a schedule II opioid drug., 157, cm, 09/20... Start Date: 10/13/21 Status: Ordered traZODone 50 mg oral tablet 50 mg, 1, tablet, By Mouth, Daily at bedtime, PRN, May repeat x1 if first dose ineffective, # 30 tablet, Refills 0, Tot. Refills 0, Maintenance, Insomnia, 10/13/21 11:30:00 EDT, Route to Pharmacy Electronically, [facility] #[id number], Partial fi... Start Date: 10/13/21 Status: Ordered Problem List Condition Confirmation Course Effective Dates Status Health St atus Informant Hallucinations Confirmed Active Suicidal behavior Confirmed Active Vital Signs Most recent to oldest [Reference Range]: 1 2 Oxygen Saturation [94-100 %] 99 % (02/19/23 5:43 PM) 97 % (02/19/23 3:41 PM) Pulse Rate [55-90 bpm] 86 bpm (02/19/23 5:43 PM) 109 bpm *H* (02/19/23 3:41 PM) Blood Pressure [90-138/55-84 mm Hg] 131/ 87mm Hg (02/19/23 5:43 PM) 123/74mm Hg (02/19/23 3:41 PM) Respiratory Rate [16-30 br/min] 12 br/mi n *L* (02/19/23 5:43 PM) 16 br/min (02/19/23 3:41 PM) Temperature [96.8-100.4 DegF] 98.1 DegF (02/19/23 5:43 PM) 98.4 DegF (02/19/23 3:41 PM) Mode of Delivery (Oxygen) Room air (02/19/23 5:43 PM) Room air (02/19/23 3:41 PM) Blood pressure sites Arm, right (02/19/23 5:43 PM) Arm, right (02/19/23 3:41 PM) Temperature Route Oral (02/19/23 5:43 PM) Oral (02/19/23 3:41 PM) Social History Social History Type Response Smoking Status Use: 1 PPD; Interest ed in cessation: Yes; Patient wants NRT during admission Yes;Never entered on: 10/11/21 Sex Note * Shauna Davis MD: PERFORM, SIGN, VERIFY Event Display: Patient Education Handout Authored Date: [id number] * Shauna Davis MD: PERFORM Event Display: Patient Education Leaflets Authored Date: [id number] Depression ?? [id number] Depression Depression is a very common mental health problem. It's not just a state of being unhappy or sad. It's a true disease. The cause seems to be linked to a change in chemicals that send signals in the brain. These things increase a person???s risk of depression: ??? A family history of depression, alcoholism, or suicide ??? Chronic illness ??? Chronic pain ???Migraine headaches ??? High emotional stress Depression may be easier to see in others. You may have a hard time seeing it in yourself. It can show in many physical and emotional ways. These include: ??? Loss of appetite ??? Overeating ??? Not being able to sleep ??? Sleeping too much ??? A lot of tiredness not linked to physical activity ??? Restlessness or irritability ??? Slowness of movement or speech ??? Feeling sad or withdrawn ??? Loss of interest in things you once enjoyed ??? Trouble??concentrating, remembering,??or making decisions ??? Thoughts of harming or killing yourself, or thoughts that life is not worth living ??? Low self-esteem The treatment for depression may include both medicine and psychotherapy. Antidepressants can ease symptoms. They can also make it easier for you to do daily tasks. Therapy can offer emotional support. It can also help you understand things that may be causing the depression. Home care ??? Ongoing care and support help people manage this disease. Find a healthcare provider and therapist who meet your needs. Get help when you feel like you may be getting ill. ??? Be kind to yourself. Make it a point to do things that you enjoy. This may be gardening, walking in nature, or going to a movie. Reward yourself for small successes. ??? Take care of your body. Eat a balanced diet. Eat foods low in saturated fat. Eat a lot of fruits and vegetables. Exercise at least 3 times a week for 30 minutes. Even mild to moderate exercise like brisk walking can make you feel better. ??? Take medicine as prescribed. Don't stop your medicine or change the dose unless you talk with your healthcare provider. ??? Once you start medicine, expect your symptoms to get better slowly. Depression will lift over time. It doesn't get better right away. Ask your healthcare provider how long it will take for a medicine to start working. ??? Don't share your medicine. Don???t use someone else's medicine. ??? Tell your healthcare providers all the medicines you take. This includes prescription and oqip-myj-[id number] medicines. It includes vitamins and herbal supplements. Some supplements caninteract with medicines. They can cause dangerous side effects. Ask your pharmacist about medicine interactions when you have questions. ??? Don't make major decisions until you feel better. This incl udes things such as a job change, a divorce, or a marriage. ??? Don't drink alcohol. It can make depression worse. ??? Talk with your family and??trusted friends??about your feelings and thoughts.??Ask them to help you notice behavior changes early. You can then get help and, if needed, your medicine can be changed. ??? Talk with your healthcare provider if you are not getting better. They may change your medicine or have you try another treatment. ?? Follow-up care Follow up with your healthcare provider as advised. ?? Crisis care Call 988 if you have thoughts of harming yourself or others. When you call or text [phone], you will beconnected to trained crisis counselors. An online chat option is also available. [employer] is free and available 11/09. 988 counselors will work with 911 to help you get the care you need. Call 911 if you: ??? Have trouble breathing ??? Are??very confused ??? Feel very drowsy or have??trouble awakening ??? Faint ??? Have new chest pain that becomes more severe, lasts longer, or spreadsinto your shoulder, arm, neck, jaw, or back ?? When to get medical care Call your healthcare provider right away if any of these happen: ??? Your symptoms get worse ??? You have extreme depression, fear, anxiety, or anger toward yourself or others ??? You feel out of control ??? You feel that you may try to harm yourself or another ??? You hear voices other people don't hear ??? You see things other people don't see ??? You don't sleep or eat for 3 days in a row ??? Friends or family express concern over your behavior and ask you to get help ?? Last Reviewed Date: 2021 ?? [id number] [employer]. All rights reserved. This information is not intended as a substitute for professional medical care. Always follow your healthcare professional's instructions. ?? Patient Care team information Care Team Personnel Name: Rochelle Anderson RN Position: [facility] RN Member Role: Primary Care Nurse Name: Not on Staff, PCP Position: [facility] Physician (General Medicine) Member Role: PCP Name: Dee Brown RN Position: [facility] RN Member Role: Primary Care Nurse Name: Sherie Díaz RN Position: [facility] RN Member Role: Primary Care Nurse Name: Brent Wayne MD Position: [facility] Physician - Behavioral Health Member Role: Lifetime Consulting Physician Address: Address: [address] [place] [id number] Name: *[facility], ED Attending Position: [facility] ED Attendings Patient Name: Laury Estevez RN Position: [facility] ED RN W/OE and Tasks Member Role: Patient Care Provider Name: Shauna Davis MD Position: [facility] ED Medicine MD Member Role: Admitting Physician Address: Address: [address] [place] [address]- Name: Hanane Briseno RN Position: [facility] ED RN W/OE and Tasks Name: Helder Penaloza Position: [facility] ED [facility] Member Role: Patient Care Provider Care Team Related Persons Name: JOSSELYN RENEE Address: home [address] [place] [address] Name: RENEE ARCOS Address: [address] [place] [address] Name: KAPIL BALLARD Address: home [address] [place] [address] Name: LORI DE JESUS Address: home [address] [place] [address]
--- OUTSIDE RECORDS SUMMARY | 2023-11-05 23:20 | XMS_ITS | Continuity of Care Document ---
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 Start Date: 10/13/21 Status: Ordered escitalopram 10 mg oral tablet 1 tablet = 10 mg, By Mouth, Daily, # 30 tablet, 0 Refills, Maintenance, 10/13/21 11:30:00 EDT, Tablet, [facility] #[id number], Partial fill upon patient request if the prescription is for a schedule II opioid drug., 157, cm, 10/13/21 10:46:00 EDT... Start Date: 10/13/21 Status: Ordered nicotine 14 mg/24 hr transdermal film, extended release 1 patch, Topically, Daily, # 30 patch, 0 Refills, Maintenance, 10/13/21 11:30:00 EDT, Patch, [facility] #[id number], Partial fill upon patient request if the prescription is for a schedule II opioid drug., 1 patch Topically Daily, 157, cm, ... Start Date: 10/13/21 Status: Ordered Nicotine 2 mg gum = 2 mg, Chew, Every hour, PRN Other, Nicotine Cravings, # 160 each, 0 Refills, Maintenance, 10/13/21 11:30:00 EDT, Gum, [facility] #[id number], Partial fill upon patient request if the prescription is for a schedule II opioid drug., 157, cm, 09/20... Start Date: 10/13/21 Status: Ordered traZODone 50 mg oral tablet 50 mg, 1, tablet, By Mouth, Daily at bedtime, PRN, May repeat x1 if first dose ineffective, # 30 tablet, Refills 0, Tot. Refills 0, Maintenance, Insomnia, 10/13/21 11:30:00 EDT, Route to Pharmacy Electronically, [facility] #[id number], Partial fi... Start Date: 10/13/21 Status: Ordered Problem List Condition Confirmation Course Effective Dates Status [facility] at Informant Hallucinations Confirmed Active Suicidal behavior Confirmed Active Results Radiology Reports * Exam Date Time Procedure Performing Provider Status 05/20/22 6:[address] Cervical Spine W/O Contrast Renetta Bartlett; Issa (Verified) Notes: (CT Cervical Spine W/O Contrast) Reason For Exam: Neck trauma, dangerous injury mechanism;Other: RESULT: CT Cervical Spine W/O Contrast CT Head/Brain W/O Contrast, CT Cervical Spine W/O Contrast Reason: Trauma. Clinical Question(s): Hematoma. TECHNIQUE: Noncontrast head CT using axial technique and reconstructed in axial and coronal planes.Weight-based protocol using automatic tube modulation was used to optimize exposure parameters. CTDIvol Body: 12.50 mGy, DLP Body: 274 mGy*cm. CTDIvol Head: 41.00 mGy, DLP Head: 672 mGy*cm. COMPARISON: 04/29/2022, 10/08/2021. FINDINGS: BRAIN and EXTRA-AXIAL SPACES: No parenchymal hemorrhage, midline shift or mass effect. Bolton-white matter differentiation is well preserved. No acute infarct. Ventricles, sulci and basilar cisterns are normal. No white matter lesions. No subarachnoid hemorrhage, subdural or epidural collections. CALVARIUM, SKULL BASE AND SOFT TISSUES: No fractures or suspicious bony lesions. Moderate mucosal thickening of the ethmoid air cells. The maxillary sinuses are clear. The sphenoidsinuses are clear. Ethmoid air cells are clear. Visualized orbits and globes are intact. The extracranial soft tissues are unremarkable. CERVICAL SPINE: No fracture. No acute osseous abnormalities. Normal alignment. No locked or perched facet. Intervertebral discs are normal. OTHER BONES: No acute abnormality. CERVICAL SOFT TISSUES AND LUNG APICES: Clear lung apices. Normal thyroid gland. IMPRESSION: No acute intracranial abnormality. No acute fracture of the cervical spine. I have personally reviewed the images and I agree with this report. WSN: [id number] Ordering Physician: Dave Hauser Dictated By: Dominik Fernando MD Dictated Date/Time: 05/20/22 7:32 am Reviewed By: Helder Palomino MD Signed By: Helder Palomino MD Signed Date/Time: 05/20/22 7:37 am Transcribed By: FELIBERTO Transcribed Date/Time: 05/20/22 7:28 am * Exam Date Time Procedure Performing Provider Status 05/20/22 6:[address] Head/Brain W/O Contrast Kiesha Bartlett; Issa (Verified) Notes: (CT Head/Brain W/O Contrast) Reason For Exam: Trauma RESULT: CT Head/Brain W/O Contrast CT Head/Brain W/O Contrast, CT Cervical Spine W/O Contrast Reason: Trauma. Clinical Question(s): Hematoma. TECHNIQUE: Noncontrast head CT using axial technique and reconstructed in axial and coronal planes.Weight-based protocol using automatic tube modulation was used to optimize exposure parameters. CTDIvol Body: 12.50 mGy, DLP Body: 274 mGy*cm. CTDIvol Head: 41.00 mGy, DLP Head: 672 mGy*cm. COMPARISON: 04/29/2022, 10/08/2021. FINDINGS: BRAIN and EXTRA-AXIAL SPACES: No parenchymal hemorrhage, midline shift or mass effect. Bolton-white matter differentiation is well preserved. No acute infarct. Ventricles, sulci and basilar cisterns are normal. No white matter lesions. No subarachnoid hemorrhage, subdural or epidural collections. CALVARIUM, SKULL BASE AND SOFT TISSUES: No fractures or suspicious bony lesions. Moderate mucosal thickening of the ethmoid air cells. The maxillary sinuses are clear. The sphenoidsinuses are clear. Ethmoid air cells are clear. Visualized orbits and globes are intact. The extracranial soft tissues are unremarkable. CERVICAL SPINE: No fracture. No acute osseous abnormalities. Normal alignment. No locked or perched facet. Intervertebral discs are normal. OTHER BONES: No acute abnormality. CERVICAL SOFT TISSUES AND LUNG APICES: Clear lung apices. Normal thyroid gland. IMPRESSION: No acute intracranial abnormality. No acute fracture of the cervical spine. I have personally reviewed the images and I agree with this report. WSN: [id number] Ordering Physician: Dave Hauser Dictated By: Dominik Fernando MD Dictated Date/Time: 05/20/22 7:32 am Reviewed By: Helder Palomino MD Signed By: Helder Palomino MD Signed Date/Time: 05/20/22 7:37 am Transcribed By: FELIBERTO Transcribed Date/Time: 05/20/22 7:28 am Vital Signs Most recent to oldest [Reference Range]: 1 2 3 Oxygen Saturation [94-100 %] 98 % (05/20/22 9:07 AM) 88 % *L* (05/20/22 6:53 AM) 97 % (05/20/22 4:30 AM) Pulse Rate [55-90 bpm] 81 bpm (05/20/22 9:07 AM) 89 bpm (05/20/22 6:53 AM) 96 bpm *H* (05/20/22 4:30 AM) Blood Pressure [90-138/55-84 mm Hg] 125/75mm Hg (05/20/22 9:07 AM) 118/58mm Hg (05/20/22 6:53 AM) 124/80mm Hg (05/20/22 4:30 AM) Respiratory Rate [16-30 br/min] 16 br/min (05/20/22 9:07 AM) 18 br/min (05/20/22 6:53 AM) 20 br/min (05/20/22 4:30 AM) Temperature [96.8-100.4 DegF] 97.6 DegF (05/20/22 4:30 AM) Mode of Delivery (Oxygen) Room air (05/20/22 9:07 AM) Room air (05/20/22 6:53 AM) Room air (05/20/22 4:30 AM) Temperature Route Oral (05/20/22 4:30 AM) Social History Social History Type Response Smoking Status Use: 1 PPD; Interest ed in cessation: Yes; Patient wants NRT during admission Yes;Never entered on: 10/11/[address] Cervical spine WO contrast * [facility] , CIS S: TRANSCRIBE Candelario CAMP Helder: MICHELLE Fernando MD, Dominik T: SIGN Event Display: Result: Authored Date: [id number] CT Head/Brain W/O Contrast, CT Cervical Spine W/O Contrast Reason: Trauma. Clinical Question(s): Hematoma. TECHNIQUE: Noncontrast head CT using axial technique and reconstructed in axial and coronal planes.Weight-based protocol using automatic tube modulation was used to optimize exposure parameters. CTDIvol Body: 12.50 mGy, DLP Body: 274 mGy*cm. CTDIvol Head: 41.00 mGy, DLP Head: 672 mGy*cm. COMPARISON: 04/29/2022, 10/08/2021. FINDINGS: BRAIN and EXTRA-AXIAL SPACES: No parenchymal hemorrhage, midline shift or mass effect. Bolton-white matter differentiation is well preserved. No acute infarct. Ventricles, sulci and basilar cisterns are normal. No white matter lesions. No subarachnoid hemorrhage, subdural or epidural collections. CALVARIUM, SKULL BASE AND SOFT TISSUES: No fractures or suspicious bony lesions. Moderate mucosal thickening of the ethmoid air cells. The maxillary sinuses are clear. The sphenoidsinuses are clear. Ethmoid air cells are clear. Visualized orbits and globes are intact. The extracranial soft tissues are unremarkable. CERVICAL SPINE: No fracture. No acute osseous abnormalities. Normal alignment. No locked or perched facet. Intervertebral discs are normal. OTHER BONES: No acute abnormality. CERVICAL SOFT TISSUES AND LUNG APICES: Clear lung apices. Normal thyroid gland. IMPRESSION: No acute intracranial abnormality. No acute fracture of the cervical spine. I have personally reviewed the images and I agree with this report. WSN: [id number] Ordering Physician: Dave Hauser Dictated By: Dominik Fernando MD Dictated Date/Time: 05/20/22 7:32 am Reviewed By: Helder Palomino MD Signed By: Helder Palomino MD Signed Date/Time: 05/20/22 7:37 am Transcribed By: FELIBERTO Transcribed Date/Time: 05/20/22 7:[address] Head WO contrast * [facility] , CIS S: TRANSCRIBE Helder Palomino MD: VERIFY Dominik Fernando MD T: SIGN Event Display: Result: Authored Date: [id number] CT Head/Brain W/O Contrast, CT Cervical Spine W/O Contrast Reason: Trauma. Clinical Question(s): Hematoma. TECHNIQUE: Noncontrast head CT using axial technique and reconstructed in axial and coronal planes.Weight-based protocol using automatic tube modulation was used to optimize exposure parameters. CTDIvol Body: 12.50 mGy, DLP Body: 274 mGy*cm. CTDIvol Head: 41.00 mGy, DLP Head: 672 mGy*cm. COMPARISON: 04/29/2022, 10/08/2021. FINDINGS: BRAIN and EXTRA-AXIAL SPACES: No parenchymal hemorrhage, midline shift or mass effect. Bolton-white matter differentiation is well preserved. No acute infarct. Ventricles, sulci and basilar cisterns are normal. No white matter lesions. No subarachnoid hemorrhage, subdural or epidural collections. CALVARIUM, SKULL BASE AND SOFT TISSUES: No fractures or suspicious bony lesions. Moderate mucosal thickening of the ethmoid air cells. The maxillary sinuses are clear. The sphenoidsinuses are clear. Ethmoid air cells are clear. Visualized orbits and globes are intact. The extracranial soft tissues are unremarkable. CERVICAL SPINE: No fracture. No acute osseous abnormalities. Normal alignment. No locked or perched facet. Intervertebral discs are normal. OTHER BONES: No acute abnormality. CERVICAL SOFT TISSUES AND LUNG APICES: Clear lung apices. Normal thyroid gland. IMPRESSION: No acute intracranial abnormality. No acute fracture of the cervical spine. I have personally reviewed the images and I agree with this report. WSN: [id number] Ordering Physician: Dave Hauser Dictated By: Dominik Fernando MD Dictated Date/Time: 05/20/22 7:32 am Reviewed By: Helder Palomino MD Signed By: Helder Palomino MD Signed Date/Time: 05/20/22 7:37 am Transcribed By: FELIBERTO Transcribed Date/Time: 05/20/22 7:28 am Patient Care team information Care Team Personnel Name: Sumit LOPEZ, Trinidad Grace Position: [facility] Outreach Member Role: PCP Address: Address: [place] [address]- Name: Rochelle Anderson RN Position: [facility] RN Member Role: Primary Care Nurse Name: Dee Brown RN Position: [facility] RN Member Role: Primary Care Nurse Name: Sherie Díaz RN Position: [facility] RN Member Role: Primary Care Nurse Name: Brent Wayne MD Position: [facility] Psychiatry MD Member Role: Lifetime Consulting Physician Address: Address: [address] [place] [address]- Name: *[facility], ED Attending Position: [facility] ED Attendings Patient Name: Raúl Vides MD Position: [facility] ED Medicine MD Member Role: Admitting Physician Address: Address: [address] [place] [address] [place] [address]- Name: Zahira Perkins RN Position: [facility] ED RN W/OE and Tasks Member Role: Patient Care Provider Name: Devon Hoffmann Position: [facility] ED TA [facility] Member Role: Price Lister Name: Dominik Marshall RN Position: [facility] ED RN W/OE and Tasks Member Role: Patient Care Provider Care Team Related Persons Name: RENEE ARCOS Address: [address] [place] [address] Name: RENEE ARCOS Address: [address] [place] [address] Name: KAPIL BALLARD Address: home [address] [place] [address] Name: LORI DE JESUS Address: home [address] [place] [address]
--- OUTSIDE RECORDS SUMMARY | 2023-11-05 23:20 | XMS_ITS | Continuity of Care Document ---
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 Refills 0, Acute 06/19/22 23:46:00 EDT, as needed for pain, 06/17/22 23:46:00 EDT, Route to Pharmacy Electronically, [email or web address] #[id number], Partial fill upon patient r... Start Date: 06/17/22 Stop Date: 06/19/22 Status: Ordered clotrimazole 1% topical cream See Instructions, Topically 2 times a day, # 30 Gm, 0 Refills, Maintenance, 10/13/21 11:28:00 EDT, Cream, [facility] #[id number], Partial fill upon patient request if the prescription is for a schedule II opioid drug., Topically 2 times a day, 15... Start Date: 10/13/21 Status: Ordered escitalopram 10 mg oral tablet 1 tablet = 10 mg, By Mouth, Daily, # 30 tablet, 0 Refills, Maintenance, 10/13/21 11:30:00 EDT, Tablet, [facility] #[id number], Partial fill upon patient request if the prescription is for a schedule II opioid drug., 157, cm, 10/13/21 10:46:00 EDT... Start Date: 10/13/21 Status: Ordered ibuprofen 200 mg oral tablet 400 mg, 2, tablet, By Mouth, Every 6 hours, PRN, # 120 tablet, Refills 0, Tot. Refills 0, Acute 06/20/22 23:46:00 EDT, for fever, 06/17/22 23:46:00 EDT, Route to Pharmacy Electronically, [facility] #[id number], Partial fill upon patient request i... Start Date: 06/17/22 Stop Date: 06/20/22 Status: Ordered nicotine 14 mg/24 hr transdermal film, extended release 1 patch, Topically, Daily, # 30 patch, 0 Refills, Maintenance, 10/13/21 11:30:00 EDT, Patch, [facility] #[id number], Partial fill upon patient request if the prescription is for a schedule II opioid drug., 1 patch Topically Daily, 157, cm, ... Start Date: 10/13/21 Status: Ordered Nicotine 2 mg gum = 2 mg, Chew, Every hour, PRN Other, Nicotine Cravings, # 160 each, 0 Refills, Maintenance, 10/13/21 11:30:00 EDT, Gum, [facility] #[id number], Partial fill upon patient request if the prescription is for a schedule II opioid drug., 157, cm, 09/20... Start Date: 10/13/21 Status: Ordered traZODone 50 mg oral tablet 50 mg, 1, tablet, By Mouth, Daily at bedtime, PRN, May repeat x1 if first dose ineffective, # 30 tablet, Refills 0, Tot. Refills 0, Maintenance, Insomnia, 10/13/21 11:30:00 EDT, Route to Pharmacy Electronically, [facility] #[id number], Partial fi... Start Date: 10/13/21 Status: Ordered Problem List Condition Confirmation Course Effective Dates Status [facility] Informant Hallucinations Confirmed Active Suicidal behavior Confirmed Active Vital Signs Most recent to oldest [Reference Range]: 1 2 3 Oxygen Saturation [94-100 %] 99 % (06/17/22 11:33 PM) 98 % (06/17/22 10:23 PM) 99 % (06/17/22 7:43 PM) Pulse Rate [55-90 bpm] 83 bpm (06/17/22 11:33 PM) 80 bpm (06/17/22 10:23 PM) 89 bpm (06/17/22 7:43 PM) Blood Pressure [90-138/55-84 mm Hg] 122/76mm Hg (06/17/22 11:33 PM) 116/69mm Hg (06/17/22 10:23 PM) 134/85mm Hg (06/17/22 7:43 PM) Respiratory Rate [16-30 br/min] 20 br/min (06/17/22 11:33 PM) 19 br/min (06/17/22 10:23 PM) 16 br/min (06/17/22 7:43 PM) Temperature [96.8-100.4 DegF] 98.1 DegF (06/17/22 10:23 PM) 98.2 DegF (06/17/22 7:43 PM) Mode of Delivery (Oxygen) Room air (06/17/22 11:33 PM) Room air (06/17/22 10:23 PM) Room air (06/17/22 7:43 PM) Blood pressure sites Arm, left (06/17/22 11:33 PM) Arm, right (06/17/22 7:43 PM) Temperature Route Oral (06/17/22 10:23 PM) Oral (06/17/22 7:43 PM) Social History Social History Type Response Smoking Status Use: 1 PPD; Interest ed in cessation: Yes; Patient wants NRT during admission Yes;Never entered on: 10/11/21 Sex Patient Care team information Care Team Personnel Name: Rochelle Anderson RN Position: [facility] RN Member Role: Primary Care Nurse Name: Not on Staff, PCP Position: [facility] Physician (General Medicine) Member Role: PCP Name: Dee Brown RN Position: [facility] RN Member Role: Primary Care Nurse Name: Sherie Díaz RN Position: [facility] RN Member Role: Primary Care Nurse Name: Brent Wayne MD Position: [facility] Psychiatry MD Member Role: Lifetime Consulting Physician Address: Address: [address] [place] [address] Name: Karin Hardin Position: [facility] ED RN W/OE and Tasks Member Role: Patient Care Provider Name: John Adrian DO Position: [facility] Resident Address: Address: [address] [place] [address] Name: Lakhwinder Robert MD Position: [facility] Resident Member Role: ED Attending Physician Address: Address: [address] [place] [address] Care Team Related Persons Name: RENEE ARCOS Address: [address] [place] [address] Name: RENEE ARCOS Address: [address] [place] [address] Name: KAPIL BALLARD Address: [address] [place] [address] Name: LORI DE JESUS Address: [address] [place] [address]
--- OUTSIDE RECORDS SUMMARY | 2023-11-05 23:20 | XMS_ITS | Continuity of Care Document ---
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 Start Date: 10/13/21 Status: Ordered escitalopram 10 mg oral tablet 1 tablet = 10 mg, By Mouth, Daily, # 30 tablet, 0 Refills, Maintenance, 10/13/21 11:30:00 EDT, Tablet, [facility] #[id number], Partial fill upon patient request if the prescription is for a schedule II opioid drug., 157, cm, 10/13/21 10:46:00 EDT... Start Date: 10/13/21 Status: Ordered nicotine 14 mg/24 hr transdermal film, extended release 1 patch, Topically, Daily, # 30 patch, 0 Refills, Maintenance, 10/13/21 11:30:00 EDT, Patch, [facility] #[id number], Partial fill upon patient request if the prescription is for a schedule II opioid drug., 1 patch Topically Daily, 157, cm, ... Start Date: 10/13/21 Status: Ordered Nicotine 2 mg gum = 2 mg, Chew, Every hour, PRN Other, Nicotine Cravings, # 160 each, 0 Refills, Maintenance, 10/13/21 11:30:00 EDT, Gum, [facility] #[id number], Partial fill upon patient request if the prescription is for a schedule II opioid drug., 157, cm, 09/20... Start Date: 10/13/21 Status: Ordered traZODone 50 mg oral tablet 50 mg, 1, tablet, By Mouth, Daily at bedtime, PRN, May repeat x1 if first dose ineffective, # 30 tablet, Refills 0, Tot. Refills 0, Maintenance, Insomnia, 10/13/21 11:30:00 EDT, Route to Pharmacy Electronically, [facility] #[id number], Partial fi... Start Date: 10/13/21 Status: Ordered Problem List Condition Confirmation Course Effective Dates Status [facility] Informant Hallucinations Confirmed Active Suicidal behavior Confirmed Active Vital Signs Most recent to oldest [Reference Range]: 1 2 Oxygen Saturation [94-100 %] 98 % (03/05/22 10:51 AM) 98 % (03/05/22 10:39 AM) Pulse Rate [55-90 bpm] 60 bpm (03/05/22 10:51 AM) 97 bpm *H* (03/05/22 10:39 AM) Blood Pressure [90-138/55-84 mm Hg] 129/ 65mm Hg (03/05/22 10:51 AM) Respiratory Rate [16-30 br/min] 20 br/mi n (03/05/22 10:51 AM) Temperature [96.8-100.4 DegF] 98.5 DegF (03/05/22 10:51 AM) Liters per Minute 0 L/min (03/05/22 10:51 AM) Mode of Delivery (Oxygen) Room air (03/05/22 10:51 AM) Room air (03/05/22 10:39 AM) Blood pressure sites Arm, right (03/05/22 10:51 AM) Temperature Route Oral (03/05/22 10:51 AM) Social History Social History Type Response Smoking Status Use: 1 PPD; Interest ed in cessation: Yes; Patient wants NRT during admission Yes;Never entered on: 10/11/21 Sex Patient Care team information Care Team Personnel Name: Rochelle Anderson RN Position: S RN Member Role: Primary Care Nurse Name: Not on Staff, PCP Position: [facility] Physician (General Medicine) Member Role: PCP Name: Dee Brown RN Position: S RN Member Role: Primary Care Nurse Name: Sherie Díaz RN Position: S RN Member Role: Primary Care Nurse Name: Tone CAMP, Brent Position: [facility] Psychiatry MD Member Role: Lifetime Consulting Physician Address: Address: [address] [place] [address]- Care Team Related Persons Name: RENEE ARCOS Address: [address] [place] [address] Name: RENEE ARCOS Address: [address] [place] [address] Name: KAPIL BALLARD Address: [address] [place] [address] Name: LORI DE JESUS Address: [address] [place] [address]
--- NOTE | 2023-11-05 23:21 | PC.NURSE ---
Pt refused NG tube and requested D/C Provider notified and aware. Plan of care ongoing.
--- OUTSIDE RECORDS SUMMARY | 2023-11-05 23:21 | XMS_ITS | Continuity of Care Document ---
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 Start Date: 10/13/21 Status: Ordered escitalopram 10 mg oral tablet 1 tablet = 10 mg, By Mouth, Daily, # 30 tablet, 0 Refills, Maintenance, 10/13/21 11:30:00 EDT, Tablet, [facility] #[id number], Partial fill upon patient request if the prescription is for a schedule II opioid drug., 157, cm, 10/13/21 10:46:00 EDT... Start Date: 10/13/21 Status: Ordered nicotine 14 mg/24 hr transdermal film, extended release 1 patch, Topically, Daily, # 30 patch, 0 Refills, Maintenance, 10/13/21 11:30:00 EDT, Patch, [facility] #[id number], Partial fill upon patient request if the prescription is for a schedule II opioid drug., 1 patch Topically Daily, 157, cm, ... Start Date: 10/13/21 Status: Ordered Nicotine 2 mg gum = 2 mg, Chew, Every hour, PRN Other, Nicotine Cravings, # 160 each, 0 Refills, Maintenance, 10/13/21 11:30:00 EDT, Gum, [facility] #[id number], Partial fill upon patient request if the prescription is for a schedule II opioid drug., 157, cm, 09/20... Start Date: 10/13/21 Status: Ordered traZODone 50 mg oral tablet 50 mg, 1, tablet, By Mouth, Daily at bedtime, PRN, May repeat x1 if first dose ineffective, # 30 tablet, Refills 0, Tot. Refills 0, Maintenance, Insomnia, 10/13/21 11:30:00 EDT, Route to Pharmacy Electronically, [facility] #[id number], Partial fi... Start Date: 10/13/21 Status: Ordered Problem List Condition Confirmation Course Effective Dates Status [facility] atus Informant Hallucinations Confirmed Active Suicidal behavior Confirmed Active Vital Signs Most recent to oldest [Reference Range]: 1 2 Weight 70 kg (06/24/22 11:48 PM) Oxygen Saturation [94-100 %] 98 % (06/24/22 11:36 PM) 98 % (06/24/22 11:31 PM) Pulse Rate [55-90 bpm] 84 bpm (06/24/22 11:36 PM) 96 bpm *H* (06/24/22 11:31 PM) Blood Pressure [90-138/55-84 mm Hg] 133/ 83mm Hg (06/24/22 11:36 PM) Respiratory Rate [16-30 br/min] 20 br/mi n (06/24/22 11:36 PM) Temperature [96.8-100.4 DegF] 98.8 DegF (06/24/22 11:36 PM) Mode of Delivery (Oxygen) Room air (06/24/22 11:36 PM) Blood pressure sites Arm, right (06/24/22 11:36 PM) Temperature Route Oral (06/24/22 11:36 PM) Social History Social History Type Response Smoking Status Use: 1 PPD; Interest ed in cessation: Yes; Patient wants NRT during admission Yes;Never entered on: 10/11/21 Sex Patient Care team information Care Team Personnel Name: Rochelle Anderson RN Position: S RN Member Role: Primary Care Nurse Name: Not on Staff, PCP Position: [facility] Physician (General Medicine) Member Role: PCP Name: Dee Brown RN Position: S RN Member Role: Primary Care Nurse Name: Sherie Díaz RN Position: [facility] RN Member Role: Primary Care Nurse Name: Brent Wayne MD Position: [facility] Psychiatry MD Member Role: Lifetime Consulting Physician Address: Address: [address] [place] [id number]- Care Team Related Persons Name: RENEE ARCOS Address: [address] [place] [address] Name: RENEE ARCOS Address: [address] [place] [address] Name: KAPIL BALLARD Address: home [address] [place] [address] Name: LORI DE JESUS Address: home [address] [place] [address]
--- OUTSIDE RECORDS SUMMARY | 2023-11-05 23:21 | XMS_ITS | Continuity of Care Document ---
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 Name Role Phone Not on Staff, PCP Primary Care Physician Unavail able [place] [facility] [place]): 10/06/20 - 10/06/[address] [address]- Discharge Disposition: A-D/C Walkout Attending Physician: Not on Staff, Attending MD Admitting Physician: Not on Staff, Admitting MD Referring Physician: Not on Staff, Referring MD Allergies, Adverse Reactions, Alerts Substance Reaction Severity Status NKA Active Results Radiology Reports * Exam Date Time Procedure Performing Provider Status 10/06/20 10:26 AM Chest Portable Stella Silva; Auth (Verified) Notes: (Chest Portable) Reason For Exam: Shortness of Breath RESULT: Chest Portable Chest Portable Hx of Present Illness: BROWN, sore throat, n v, cough x1 day. Known covid exposure. Denies current SOB.; Reason: Shortness of Breath; Clinical Question(s): Pneumonia COMPARISON: None. FINDINGS: LINES AND TUBES: None. LUNGS AND PLEURA: The lungs are grossly clear without focal atelectasis or consolidation. There is no pulmonary vascular congestion. The right costophrenic angle is blunted. No pneumothorax is identified. HEART, MEDIASTINUM AND TERRY: Heart is normal in size. Normal upper mediastinal and hilar contour. BONES AND SOFT TISSUES: No acute abnormality. IMPRESSION: 1. No acute consolidative pneumonia. 2. Small right pleural effusion versus pleural reaction at right costophrenic angle. WSN: [id number] Ordering Physician: Crystal Chávez MD Dictated By: Anam Alfonso MD Dictated Date/Time: 10/06/20 10:42 a Reviewed By: Anam Alfonso MD Signed By: Anam Alfonso MD Signed Date/Time: 10/06/20 10:42 am Transcribed By: FELIBERTO Transcribed Date/Time: 10/06/20 10:28 am Vital Signs Most recent to oldest [Reference Range]: 1 2 Oxygen Saturation [94-100 %] 98 % (10/06/20 9:43 AM) Pulse Rate [55-90 bpm] 88 bpm (10/06/20 9:43 AM) Blood Pressure [90-138/55-84 mm Hg] 137/ 88mm Hg (10/06/20 9:43 AM) Respiratory Rate [16-30 br/min] 16 br/mi n (10/06/20 9:43 AM) Temperature [96.8-100.4 DegF] 99.2 DegF (10/06/20 9:43 AM) Liters per Minute 2 L/min (10/06/20 9:01 AM) Mode of Delivery (Oxygen) Room air (10/06/20 9:43 AM) Nasal cannula (10/06/20 9:01 AM) Blood pressure sites Arm, right (10/06/20 9:43 AM) Temperature Route Oral (10/06/20 9:43 AM)
--- OUTSIDE RECORDS SUMMARY | 2023-11-05 23:21 | XMS_ITS | Continuity of Care Document ---
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 Name Role Phone Not on Staff, PCP Primary Care Physician Unavail able Encounter [facility] [place] Date(s): 07/07/20 - 07/07/[address] [address]- Encounter Diagnosis Cocaine abuse(Final) - 07/07/20 Discharge Disposition: A-D/C Home Attending Physician: Bradley Flores DO Admitting Physician: Bradley Flores DO Referring Physician: Not on Staff, Referring MD Vital Signs Most recent to oldest [Reference Range]: 1 2 3 Weight 71.5 kg (07/07/20 12:35 PM) 71.5 kg (07/07/20 9:31 AM) 71.5 kg (07/07/20 9:30 AM) Oxygen Saturation [94-100 %] 99 % (07/07/20 12:35 PM) 100 % (07/07/20 9:31 AM) 99 % (07/07/20 9:29 AM) Pulse Rate [55-90 bpm] 82 bpm (07/07/20 12:35 PM) 99 bpm *H* (07/07/20 9:31 AM) 106 bpm *H* (07/07/20 9:29 AM) Blood Pressure [90-138/55-84 mm Hg] 122/66mm Hg (07/07/20 12:35 PM) 152/98mm Hg *H* (07/07/20 9:31 AM) Respiratory Rate [16-30 br/min] 18 br/min (07/07/20 12:35 PM) 18 br/min (07/07/20 9:31 AM) Temperature [96.8-100.4 DegF] 98.6 DegF (07/07/20 9:31 AM) Mode of Delivery (Oxygen) Room air (07/07/20 9:31 AM) Room air (07/07/20 9:29 AM) Blood pressure sites Arm, left (07/07/20 12:35 PM) Arm, left (07/07/20 9:31 AM) Arm, right (07/07/20 9:30 AM) Temperature Route Oral (07/07/20 9:31 AM) Oral (07/07/20 9:30 AM) Dry Weight 71.5 kg (07/07/20 12:35 PM) 71.5 kg (07/07/20 9:31 AM) 71.5 kg (07/07/20 9:30 AM) Weight Obtained Via Standing scale (07/07/20 9:30 AM) Dry Weight Obtained Via Standing scale (07/07/20 9:30 AM)
--- OUTSIDE RECORDS SUMMARY | 2023-11-05 23:21 | XMS_ITS | Continuity of Care Document ---
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 Name Role Phone Not on Staff, PCP Primary Care Physician Unavail able [place] [facility] [place] - 06/12/[address] [address]- Discharge Disposition: A-D/C Walkout Attending Physician: Dave Bradley MD Admitting Physician: Dave Bradley MD Referring Physician: Not on Staff, Referring MD Allergies, Adverse Reactions, Alerts No Known Allergies Results Radiology Reports * Exam Date Time Procedure Performing Provider Status 06/12/21 10:34 AM Chest 2 Views Fronta l and Lat Crissy Cruz; Issa (Verified) Notes: (Chest 2 Views Frontal and Lat) Reason For Exam: Chest Pain;Other: RESULT: Chest 2 Views Frontal and Lat Chest 2 Views Frontal and Lat INDICATION: Increasing shortness of breath and chest pain. 10/06/2020. COMPARISON: None. FINDINGS: LINES AND TUBES: None. LUNGS AND PLEURA: The lungs appear mildly hyperexpanded and clear without evidence of pulmonary vascular congestion. No pleural effusion. No pneumothorax. HEART, MEDIASTINUM AND TERRY: Heart is normal in size. Normal upper mediastinal and hilar contour. BONES AND SOFT TISSUES: No acute abnormality. IMPRESSION: No acute abnormality. WSN: [id number] Ordering Physician: Samanta Umaña Dictated By: Silvano Moreira MD Dictated Date/Time: 06/12/21 11:03 a Reviewed By: Silvano Moreira MD Signed By: Silvano Moreira MD Signed Date/Time: 06/12/21 11:03 am Transcribed By: FELIBERTO Transcribed Date/Time: 06/12/21 11:02 am Vital Signs Most recent to oldest [Reference Range]: 1 2 Oxygen Saturation [94-100 %] 100 % (06/12/21 9:26 AM) 99 % (06/12/21 9:20 AM) Pulse Rate [55-90 bpm] 108 bpm *H* (06/12/21: AM) 115 bpm *H* (06/12/21 9:20 AM) Blood Pressure [90-138/55-84 mm Hg] 140/ 93mm Hg *H* (06/12/21: AM) Respiratory Rate [16-30 br/min] 20 br/mi n (06/12/21:26 AM) 18 br/min (06/12/21 9:20 AM) Temperature [96.8-100.4 DegF] 98.3 DegF (06/12/21: AM) Mode of Delivery (Oxygen) Room air (06/12/21 9:26 AM) Room air (06/12/21 9:20 AM) Blood pressure sites Arm, right (06/12/21 9: AM) Temperature Route Oral (06/12/21 9: AM)
[2023-11-05 23:31] VITALS: BP 119/78; PULSE 67; RESP 12; TEMP 36.7; O2SAT 96
[2023-11-05 23:32] VITALS: BP 119/78; PULSE 67; RESP 12; TEMP 36.7; O2SAT 96
== END 2023-11-05 23:35 | disposition home or self-care (01) ==
PROVIDERS: Physician Assistant Medical; Emergency Provider Emergency Medicine
DX: K92.0 Hematemesis (principal); F10.10 Alcohol abuse, uncomplicated; Y90.0 Blood alcohol level of less than 20 mg/100 ml; F14.90 Cocaine use, unspecified, uncomplicated; Z79.899 Other long term (current) drug therapy
CPT/HCPCS: 36415; 80053; 80307; 83690; 83735; 85025; 99283; 99284